=== PATIENT | male | born 1935 | race Caucasian/White ===

== ENCOUNTER → 2017-06-17 | Outpatient (CLI) | payer MEDICARE ==
[~2017-06-17] MED LIST: ASP81TEC PO; CARV3.122 PO; CLOP75TA PO; CLPD75T PO; ENAL2.5T PO; FENO145T2 PO; FENO160T PO; FEXO180T PO; FISH OIL 1,2001 EAC1 PO; FISH1CAP15 PO; HYDR-34 PO; ISM30TCR PO; ISOS30TA3 PO; LEVO125T6 PO; LEVO137T6 PO; LISI-556 PO; MULT-974 PO; NIAC1CAP PO; NIAC250T17 PO; OMEP20TA2 PO; PNT40TEC PO; PRV20T PO; RANO500T2 PO; ROSU10TA PO; TICA90TA PO
== END ==
LOC: CARD 08:51
PROVIDERS: ATTEND Internal Medicine Cardiovascular Disease
DX: I25.10 Atherosclerotic heart disease of native coronary artery without angina pectoris (principal); I10 Essential (primary) hypertension; E78.2 Mixed hyperlipidemia; E03.9 Hypothyroidism, unspecified; I65.23 Occlusion and stenosis of bilateral carotid arteries
CPT/HCPCS: 93306

== ENCOUNTER → 2017-06-23 | Outpatient (CLI) | payer MEDICARE ==
[~2017-06-23] MED LIST changes: +ASPI-983 PO; +ATOR10TA PO; +ATOR10TA66 PO; +CARV6.252 PO; +CATHETER FLUSH 10 ML SYR IV PRN; +CLOP75TA28 PO; +L.AC1CAP5 PO; +LEVO112T55 PO; +MULT-851 PO; +NIAC500C3 PO; +PANT40TA3 PO; +REGADENOSON 0.4 MG/5 ML SYR (LEXISCAN) IV ONE; +UBID200C16 PO
[2017-06-23 10:32] VITALS: BP 148/97
[2017-06-23 10:37] VITALS: BP 156/92
--- NOTE | 2017-06-23 20:56 | STRESS TEST ---
DATE OF SERVICE: 06/23/2017 REFERRING PHYSICIAN: Kenyatta Copeland M.D. Baseline heart rate is 75. Baseline blood pressure 133/91. Baseline EKG is sinus rhythm with no ischemic changes. In summary, the patient was injected with 10.26 mCi of technetium-99 Myoview and the resting images were obtained. The patient was injected with 28.8 mCi of technetium-99 Myoview at peak stress level. He was able to exercise for a total of 3 minutes on standard Jay protocol, achieving maximum heart rate of 153. With peak exercise level EKG was showing minimal nondiagnostic changes. Blood pressure was 175/91 during recovery, heart rate and blood pressure returned to baseline. EKG returned to baseline. The resting and stress images were reviewed and compared in the short axis, horizontal long axis and vertical long axis views. Review of the images showed extracardiac attenuation with reversible ischemia involving the whole inferior wall, inferolateral wall, inferoapical and anteroapical segment. SSS is 17. SVS is 8. TID value 1.09. On the gated images, the left ventricle appeared to be normal size with normal contractility. Calculated ejection fraction 58%. CONCLUSION: 1. Poor exercise tolerance a total of 3 minutes on standard Jay protocol. 2. Minimal nondiagnostic EKG changes with exercise returned to baseline during recovery. 3. Extracardiac attenuation with questionable ischemia involving the whole inferior wall inferoapical segment through apex, anteroapical segment and inferolateral wall. 4. Normal left ventricular size with normal contractility, calculated ejection fraction 58%. Job ID: [id number] DocumentID: [id number] Dictated Date: 06/23/2017 17:56:07 Supervisor Special Services Date: 06/23/2017 20:14:36 Dictated By: NICOLASA SANDHU MD
== END ==
LOC: CARD 07:59
PROVIDERS: ATTEND Internal Medicine Cardiovascular Disease
DX: I25.10 Atherosclerotic heart disease of native coronary artery without angina pectoris (principal); I10 Essential (primary) hypertension; I65.23 Occlusion and stenosis of bilateral carotid arteries; E78.2 Mixed hyperlipidemia; E03.9 Hypothyroidism, unspecified
CPT/HCPCS: 78452; 93017

== ENCOUNTER 2017-06-24 05:37 | Outpatient (CLI) | payer MEDICARE ==
[~2017-06-24] VITALS: Ht 177.8 cm; Wt 82.1 kg
[~2017-06-24 05:37] MED LIST changes: -ASPI-983 PO; -ATOR10TA PO; -ATOR10TA66 PO; -CARV6.252 PO; -CATHETER FLUSH 10 ML SYR IV PRN; -CLOP75TA28 PO; -L.AC1CAP5 PO; -LEVO112T55 PO; -MULT-851 PO; -NIAC500C3 PO; -PANT40TA3 PO; -REGADENOSON 0.4 MG/5 ML SYR (LEXISCAN) IV ONE; -UBID200C16 PO
[2017-06-25] MEDS ORDERED: NIAC500C3 PO ×2 (11:11)
[2017-06-25] MEDS ORDERED: PANT40TA3 PO ×2 (11:11)
[2017-06-25] MEDS ORDERED: CARV6.252 PO ×2 (11:11)
[2017-06-25] MEDS ORDERED: LEVO112T55 PO ×2 (11:11)
[2017-06-25] MEDS ORDERED: ASPI-983 PO ×2 (11:11)
[2017-06-25] MEDS ORDERED: UBID200C16 PO ×2 (11:12)
[2017-06-25] MEDS ORDERED: MULT-851 PO ×2 (11:12)
[2017-06-25] MEDS ORDERED: L.AC1CAP5 PO ×2 (11:12)
[2017-06-25] MEDS ORDERED: CLOP75TA28 PO ×2 (11:12)
[2017-06-25] MEDS ORDERED: ATOR10TA66 PO ×2 (11:12)
[2017-06-25] MEDS ORDERED: ATOR10TA PO ×2 (11:58)
== END 2017-06-24 13:00 ==
LOC: PREOP 05:37
PROVIDERS: ATTEND Surgery
DX: Z01.818 Encounter for other preprocedural examination (principal); K62.5 Hemorrhage of anus and rectum; Z86.010 Personal history of colon polyps

== ENCOUNTER 2017-06-25 10:16 | Day surgery (SDC) | payer MEDICARE ==
[2017-06-25] VITALS (9 sets, daily range): BP systolic 116–149; BP diastolic 73–87
[~2017-06-25] VITALS: Ht 177.8 cm; Wt 81.6 kg
[2017-06-25] MEDS ORDERED: HEParin (CATH LAB) 2,000 ML IV ONE (10:29)
[2017-06-25] MEDS ORDERED: LIDOCAINE 1% INJ 50 ML (XYLOCAINE) VIAL ONE (10:29)
[2017-06-25] MEDS ORDERED: NS IV 1000 ML 1,000 ML ONE (10:29)
[2017-06-25] MEDS ORDERED: NS IV 1000 ML 1,000 ML IV SCH ×3 (10:36→11:56)
[2017-06-25 11:00] LABS: RED BLOOD COUNT 5.45 10^6/uL (4.35-5.85); RED CELL DISTRIBUTION WIDTH 14.1 % (10.0-14.5); WHITE BLOOD COUNT 7.6 10^3/uL (4.3-11.0)
[2017-06-25 11:01] LABS: BILIRUBIN,URINE NEGATIVE (NEGATIVE); KETONES,URINE NEGATIVE (NEGATIVE); LEUKOCYTE ESTERASE ,URINE NEGATIVE (NEGATIVE); NITRITE,URINE NEGATIVE (NEGATIVE); PH,URINE 6 (5-9); PROTEIN,URINE NEGATIVE (NEGATIVE); UROBILINOGEN,URINE NORMAL (NORMAL)
[2017-06-25] MEDS ORDERED: methylPREDNISolone 125 MG (Solu-MEDROL) VIAL ONE (11:04)
--- NOTE | 2017-06-25 11:04 | Cardiac Procedure Note-CS/ASA ---
Pre-Procedure Note Pre-Op Procedure Note H&P Reviewed The H&P was reviewed, patient examined and no changes noted. Date H&P Reviewed: Jun 25, 2017 Time H&P Reviewed: 11:04 Conscious Sedation Pre-Proced Time Reviewed: 11:04 ASA Class: 3 Airway Mallampati Classification: ([place] appropriate class) I. II. III, IV Lungs Heart ASA score ASA 1: a normal healthy patient ASA 2: a patient with a mild systemic disease (mid diabetes, controlled hypertension, obesity x ASA 3: a patient with a severe systemic disease that limits activity (angina , COPD, prior Myocardial infarction) ASA 4: a patient with an incapacitating disease that is a constant threat to life (CHF, renal failure) ASA 5: a moribund patient not expected to survive 24 hrs. (ruptured aneurysm) ASA 6: a declared brain patient whose organs are being harvested. For emergent operations, add the letter E after the classification Grade 3 Sedation Plan: Analgesia, Amnesia, Plan communicated to team members, Discussed options with patient/fam, Discussed risks with patient/fam Note The patient is an appropriate candidate to undergo the planned procedure, sedation, and anesthesia. The patient immediately re-assessed prior to indication. NICOLASA SANDHU MD Jun 25, 2017 11:04
[2017-06-25] MEDS ORDERED: fentaNYL INJECTION 100 MCG/2 ML AMP ONE (11:10)
[2017-06-25] MEDS ORDERED: MIDAZOLAM 2 MG/2 ML (VERSED) VIAL ONE (11:10)
[2017-06-25] MEDS ORDERED: diphenhydrAMINE 50 MG/ML INJ (BENADRYL) ONE (11:10)
[2017-06-25] MEDS ORDERED: LEVO112T55 PO ×2 (11:11)
[2017-06-25] MEDS ORDERED: NIAC500C3 PO ×2 (11:11)
[2017-06-25] MEDS ORDERED: CARV6.252 PO ×2 (11:11)
[2017-06-25] MEDS ORDERED: PANT40TA3 PO ×2 (11:11)
[2017-06-25] MEDS ORDERED: ASPI-983 PO ×2 (11:11)
[2017-06-25 11:12] LABS: PROTHROMBIN TIME PATIENT 13.3 SEC (12.2-14.7)
[2017-06-25] MEDS ORDERED: UBID200C16 PO ×2 (11:12)
[2017-06-25] MEDS ORDERED: MULT-851 PO ×2 (11:12)
[2017-06-25] MEDS ORDERED: L.AC1CAP5 PO ×2 (11:12)
[2017-06-25] MEDS ORDERED: ATOR10TA66 PO ×2 (11:12)
[2017-06-25] MEDS ORDERED: CLOP75TA28 PO ×2 (11:12)
--- NOTE | 2017-06-25 11:14 | Diagnostic Imaging Report ---
INDICATION: Coronary catheterization, coronary artery disease. Frontal chest obtained at 1033 hrs am, and compared with 03/09/16. Heart is borderline in size with post sternotomy change. There is hyperinflation compatible with COPD with chronic appearing increased interstitial markings. There is no acute consolidation or pneumothorax or pleural fluid. Plate and screws are visualized in the right clavicle. IMPRESSION: COPD is a chronic appearing increased interstitial markings. Mild cardiomegaly and post sternotomy change. No acute change compared with 03/09/16. Dictated by: Dictated on workstation # [id number]
[2017-06-25 11:20] LABS: ALANINE AMINOTRANSFERASE 41 U/L (0-55); ALBUMIN 4.1 GM/DL (3.2-4.5); ANION GAP 7 MMOL/L (5-14); ASPARTATE AMINO TRANSFERASE 35 U/L (5-34); BILIRUBIN,TOTAL 1.1 MG/DL (0.1-1.0); BLOOD UREA NITROGEN 18 MG/DL (7-18); BUN/CREATININE RATIO 16; CALCIUM 9.8 MG/DL (8.5-10.1); CARBON DIOXIDE 30 MMOL/L (21-32); CHLORIDE 102 MMOL/L (98-107); CHOLESTEROL 198 MG/DL (< 200); CREATININE SERUM 1.13 MG/DL (0.60-1.30); DIRECT LDL 114 MG/DL (1-129); GFR ESTIMATED > 60; GLUCOSE 115 MG/DL (70-105); POTASSIUM 3.9 MMOL/L (3.6-5.0); SODIUM 139 MMOL/L (135-145); TOTAL PROTEIN 7.9 GM/DL (6.4-8.2); TRIGLYCERIDES 295 MG/DL (<150); VLDL CHOLESTEROL 59 MG/DL (5-40)
[2017-06-25] MEDS ORDERED: NITROGLYCERIN DRIP 25 MG/D5W 250 ML IV ONE (11:48)
[2017-06-25] MEDS ORDERED: ATOR10TA PO ×2 (11:58)
[2017-06-25] MEDS ORDERED: PATIENT MAY USE OWN MEDS, ALL PO SCH (12:00)
--- NOTE | 2017-06-25 12:01 | Discharge Inst-Post CATH ---
Discharge Inst-CATH Post Cardiac Cath D/C Inst Follow Up/Plan PROCEDURE NOTE: After explaining the procedure to the patient, all pros and cons were explained, all questions were answered. The patient signed the consent and then she was placed on the cardiac catheterization laboratory. The patient was placed on the cardiac catheterization laboratory. Groin was prepped SL fashion local anesthesia was used. Sheath placed in the right femoral artery. Rivas right and left catheter were used to access the coronary system. Vein Graft evaluated. MEYER evaluated. Pigtail was used to access the left ventricular cavity. Left ventriculogram was not done, pressure was measured At the end of the procedure the sheath was removed. Closure device was used FINDINGS: Hemodynamics LV 115/15 end-diastolic pressure 15 Aorta 125/61 mean of 85 ANATOMY: Left Main has moderate disease Left Anterior Descending is occluded, MEYER to LAD is patent, vein graft to diagonal artery is patent, stent is patent beyond the stented artery is a hairline artery Left Circumflex is disease with patent MEYER to LAD Right Coronory Artery has multiple stents and has mild in-stent restenosis distally small vessel disease MEYER to LAD is patent with good flow distally Vein Graft evaluation was done Vein graft to the right coronary artery is known to be occluded Vein graft to the diagonal artery is patent, the diagonal artery is fairly small artery has a patent stent to become hairline artery post stent Vein graft to the obtuse marginal branch is patent with good flow distally LV Gram was not done, pressure was measured CONCLUSION: 1. Severe small vessel disease at the distal diagonal artery and right coronary artery and LAD 2. Patent MEYER to LAD 3. Patent vein graft to diagonal artery, the diagonal artery is known to have 2 stents, beyond the stent it is a hairline artery with small vessel disease 4. Patent vein graft to obtuse marginal branch with good flow distally 5. Known occluded vein graft to the right coronary artery, the [place] right cornea artery has multiple stents from the proximal to distal portion that are patent, beyond the bifurcation there is small vessel disease in the PDA DISCUSSION AND RECOMMENDATION: Continue to maximize medical therapy, I will increase Lipitor to 20 mg daily. Continue on aspirin and Plavix CARDIAC CATH DISCHARGE INSTRUCTIONS *Hold Metformin for 48 hours post heart cath. ACTIVITY * Go Home directly and rest. * Limit activity of the leg (or wrist if it was used) for 7 days including aerobics, swimming, jogging, bicycling, etc. * Restrict stair-climbing for 7 days if possible, if not, climb up with your non -cath leg, then bring together on the same step. * Avoid lifting, pushing, pulling or excessive movement of the affected extremity for 7 days. * Customary sexual activity may be resumed after 2 days-use caution not to use a position that strains or causes pain to the affected extremity. * No driving for 24 hours. * NO SMOKING. * Avoid straining for bowel movements for 7 days. * Gentle walking on level ground is allowed. * Returning to work will depend on the type of procedure and the results. Your doctor will discuss this with you. CALL YOUR DOCTOR FOR ANY OF THE FOLLOWING: *If bleeding from the puncture site occurs- Apply gentle pressure to site with clean cloth and call your doctor or EMS. * If a knot or lump forms under the skin, increases in size, or causes pain. * If bruising appears to be worsening or moving further down your leg instead of disappearing. * Temperature above 101 F. CARE OF YOUR GROIN INCISION; * Bruising or purple discoloration of the skin near the puncture site is common. * You may shower only, no bathtub bathing for 5 days. Be careful to avoid slipping as your leg may feel stiff. * If a closure device was used on your femoral artery, please see the attached guide regarding care of the device and your leg. * REMOVE the dressing from your groin the next day after your procedure in the shower. CARE OF YOUR WRIST INCISION; * Bruising or purple discoloration of the skin near the puncture site is common. * You may shower. * DO NOT submerge wrist. * Remove dressing in 24 hours. NICOLASA SANDHU MD Jun 25, 2017 12:01
--- NOTE | 2017-06-25 12:04 | Cardiac Cath Report ---
Cardiac Cath Report Physician (s)/Validation Engineer (s) Physician NICOLASA SANDHU MD Pre-Procedure Diagnosis Pre-Procedure Diagnosis: Coronary artery disease Post-Procedure Note Procedure Start Date: Jun 25, 2017 Name of Procedure: Left heart catheterization, vein graft angiogram, MEYER angiogram, left ventricular pressure measurement. 12009 Findings/Procedure Note Hemodynamics LV 115/15 end-diastolic pressure 15 Aorta 125/61 mean of 85 ANATOMY: Left Main has moderate disease Left Anterior Descending is occluded, MEYER to LAD is patent, vein graft to diagonal artery is patent, stent is patent beyond the stented artery is a hairline artery Left Circumflex is disease with patent MEYER to LAD Right Coronory Artery has multiple stents and has mild in-stent restenosis distally small vessel disease MEYER to LAD is patent with good flow distally Vein Graft evaluation was done Vein graft to the right coronary artery is known to be occluded Vein graft to the diagonal artery is patent, the diagonal artery is fairly small artery has a patent stent to become hairline artery post stent Vein graft to the obtuse marginal branch is patent with good flow distally LV Gram was not done, pressure was measured CONCLUSION: 1. Severe small vessel disease at the distal diagonal artery and right coronary artery and LAD 2. Patent MEYER to LAD 3. Patent vein graft to diagonal artery, the diagonal artery is known to have 2 stents, beyond the stent it is a hairline artery with small vessel disease 4. Patent vein graft to obtuse marginal branch with good flow distally 5. Known occluded vein graft to the right coronary artery, the [place] right cornea artery has multiple stents from the proximal to distal portion that are patent, beyond the bifurcation there is small vessel disease in the PDA DISCUSSION AND RECOMMENDATION: Continue to maximize medical therapy, I will increase Lipitor to 20 mg daily. Continue on aspirin and Plavix Anesthesia Type: Conscious Sedation Estimated blood loss (mL): 20 ml Contrast Amount: 84 ml Total Radiation Dose: 408 mGy Post-Procedure Diagnosis Post-operative diagnosis: Shortness of breath Coronary artery disease Hypertension Hyperlipidemia NICOLASA SANDHU MD Jun 25, 2017 12:04
== END 2017-06-25 16:54 | disposition home or self-care (01) ==
LOC: CATH 10:16 → ICU 12:10 → CATH 16:54
PROVIDERS: ATTEND Internal Medicine Cardiovascular Disease
DX: I25.10 Atherosclerotic heart disease of native coronary artery without angina pectoris (principal); I73.9 Peripheral vascular disease, unspecified; I11.0 Hypertensive heart disease with heart failure; I50.30 Unspecified diastolic (congestive) heart failure; I35.0 Nonrheumatic aortic (valve) stenosis; E78.5 Hyperlipidemia, unspecified; E03.9 Hypothyroidism, unspecified; I25.2 Old myocardial infarction; Z95.1 Presence of aortocoronary bypass graft; Z95.5 Presence of coronary angioplasty implant and graft; Z79.02 Long term (current) use of antithrombotics/antiplatelets; Z79.82 Long term (current) use of aspirin; Z79.899 Other long term (current) drug therapy
CPT/HCPCS: 36415; 71010; 80053; 80061; 81000; 85027; 85610; 85730; 87081; 93459

== ENCOUNTER 2017-06-30 11:13 | Day surgery (SDC) | payer MEDICARE ==
[~2017-06-30] VITALS: Ht 177.8 cm; Wt 81.6 kg
[~2017-06-30 11:13] MED LIST changes: +ASPI-983 PO; +ATOR10TA PO; +ATOR10TA66 PO; +CARV6.252 PO; +CLOP75TA28 PO; +L.AC1CAP5 PO; +LEVO112T55 PO; +MULT-851 PO; +NIAC500C3 PO; +PANT40TA3 PO; +UBID200C16 PO
--- OUTSIDE RECORDS SUMMARY | 2017-06-30 13:01 | XMS REPORT | Continuity of Care Document ---
Author Author [facility] Organization [facility] Address Unknown Phone Unavailable Allergies Active Description Code Type Severity Reaction Onset Reported/Identified Relationship to Patient Clinical Status Yes ranitidine HCl [id number] Drug Allergy Mild N/A 06/25/2011 Yes bee stings bee stings Unknown N/A 03/09/2016 Yes Shellfish [id number] Drug Allergy Unknown N/A 03/09/2016 Medications There is no data. Problems Date Dx Coded Attending Type Code Diagnosis Diagnosed By 01/10/2015 JAMES BEVERLY Ot 401.9 01/10/2015 JAMES BEVERLY Ot 414.9 01/10/2015 JAMES BEVERLY Ot 428.0 01/10/2015 JMAES BEVERLY Ot 433.30 01/11/2015 JAMES BEVERLY Ot 401.9 01/11/2015 JAMES BEVERLY Ot 414.9 01/11/2015 JAMES BEVERLY Ot 428.0 01/11/2015 JAMES BEVERLY Ot 433.30 05/18/2015 NICOLASA SANDHU MD Ot 401.9 05/18/2015 NICOLASA SANDHU MD Ot 414.00 05/18/2015 NICOLASA SANDHU MD Ot 428.0 05/18/2015 NICOLASA SANDHU MD Ot 433.10 03/11/2016 NICOLASA SANDHU MD Ot E03.9 HYPOTHYROIDISM, UNSPECIFIED 03/11/2016 NICOLASA SANDHU MD Ot E78.5 HYPERLIPIDEMIA, UNSPECIFIED 03/11/2016 NICOLASA SANDHU MD Ot I10 ESSENTIAL (PRIMARY) HYPERTENSION 03/11/2016 NICOLASA SANDHU MD Ot I21.4 NON-ST ELEVATION (NSTEMI) MYOCARDIAL INF 03/11/2016 NICOLASA SANDHU MD Ot I25.10 ATHSCL HEART DISEASE OF [place] CORONARY 03/11/2016 NICOLASA SANDHU MD Ot I25.810 ATHEROSCLEROSIS OF CABG W/O ANGINA PECTO 03/11/2016 NICOLASA SANDHU MD Ot K21.9 GASTRO-ESOPHAGEAL REFLUX DISEASE WITHOUT 03/11/2016 NICOLASA SANDHU MD Ot Z87.891 PERSONAL HISTORY OF NICOTINE DEPENDENCE 03/11/2016 NICOLASA SANDHU MD Ot Z95.1 PRESENCE OF AORTOCORONARY BYPASS GRAFT 03/11/2016 NICOLASA SANDHU MD Ot Z95.5 PRESENCE OF CORONARY ANGIOPLASTY IMPLANT 06/16/2017 NICOLASA SANDHU MD Ot 414.00 CORON ATHEROSCLER NOS TYPE VESSEL, NATIV 06/16/2017 NICOLASA SANDHU MD Ot 428.0 CONGESTIVE HEART FAILURE NOS 06/16/2017 ELISSA CULLEN [employer] Ot 241.0 NONTOX UNINODULAR GOITER 06/16/2017 ELISSA CULLEN [employer] Ot 784.2 SWELLING IN HEAD NECK 06/16/2017 NICOLASA SANDHU MD Ot 397.0 TRICUSPID VALVE DISEASE 06/16/2017 NICOLASA SANDHU MD Ot 401.9 HYPERTENSION NOS 06/16/2017 NICOLASA SANDHU MD Ot 414.00 CORON ATHEROSCLER NOS TYPE VESSEL, NATIV 06/16/2017 NICOLASA SANDHU MD Ot 424.0 MITRAL VALVE DISORDER 06/16/2017 NICOLASA SANDHU MD Ot 428.0 CONGESTIVE HEART FAILURE NOS 06/16/2017 NICOLASA SANDHU MD Ot 401.9 HYPERTENSION NOS 06/16/2017 NICOLASA SANDHU MD Ot 414.00 CORON ATHEROSCLER NOS TYPE VESSEL, NATIV 06/16/2017 NICOLASA SANDHU MD Ot 428.0 CONGESTIVE HEART FAILURE NOS 06/16/2017 NICOLASA SANDHU MD Ot 433.10 CAROTID ARTERY OCCLUSION W O CEREBRAL IN 06/16/2017 JAMES BEVERLY Ot 401.9 HYPERTENSION NOS 06/16/2017 JAMES BEVERLY Ot 414.9 CHR ISCHEMIC HRT DIS NOS 06/16/2017 JAMES BEVERLY Ot 428.0 CONGESTIVE HEART FAILURE NOS 06/16/2017 JAMES BEVERLY Ot 433.30 MULT BILTRAL ARTERY OCCLUSION WO CEREBRA 06/25/2017 NICOLASA SANDHU MD Ot E03.9 HYPOTHYROIDISM, UNSPECIFIED 06/25/2017 NICOLASA SANDHU MD, Ot E78.2 MIXED HYPERLIPIDEMIA 06/25/2017 NICOLASA SANDHU MD Ot I10 ESSENTIAL (PRIMARY) HYPERTENSION 06/25/2017 NICOLASA SANDHU MD, Ot I25.10 ATHSCL HEART DISEASE OF [place] CORONARY 06/25/2017 NICOLASA SANDHU MD Ot 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 06/27/2017 JAMIA DE LEÓN MD Ot K62.5 HEMORRHAGE OF ANUS AND RECTUM 06/27/2017 JAMIA DE LEÓN MD Ot Z01.818 ENCOUNTER FOR OTHER PREPROCEDURAL EXAMIN 06/27/2017 JAMIA DE LEÓN MD Ot Z86.010 PERSONAL HISTORY OF COLONIC POLYPS 06/27/2017 NICOLASA SANDHU MD, Ot E03.9 HYPOTHYROIDISM, UNSPECIFIED 06/27/2017 NICOLASA SANDHU MD, Ot E78.2 MIXED HYPERLIPIDEMIA 06/27/2017 NICOLASA SANDHU MD Ot I10 ESSENTIAL (PRIMARY) HYPERTENSION 06/27/2017 NICOLASA SANDHU MD, Ot I25.10 ATHSCL HEART DISEASE OF [place] CORONARY 06/27/2017 NICOLASA SANDHU MD, Ot 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 Procedures Code Description Performed By Performed On [id number] DILATION OF 1 COR ART WITH DRUG-ELUT INT 03/09/2016 [id number] DILATION OF CORONARY ARTERY, ONE SITE, P 03/09/2016 [id number] FLUOROSCOPY OF MULT COR ART USING L OSM 03/09/2016 [id number] FLUOROSCOPY OF MULT COR A GRAFT USING L 03/09/2016 [id number] FLUOROSCOPY OF L INT MAMM GRAFT USING L 03/09/2016 Results Test Result Range Complete blood count (CBC) with automated white blood cell (WBC) differential - 03/09/16 16:35 Blood leukocytes automated count (number/volume) 8.6 10*3/uL 4.3-11.0 Blood erythrocytes automated count (number/volume) 5.70 10*6/uL 4.35-5.85 Venous blood hemoglobin measurement (mass/volume) 17.1 g/dL 13.3-17.7 Blood hematocrit (volume fraction) 49 % 40-54 Automated erythrocyte mean corpuscular volume 86 [foz_us] 80-99 Automated erythrocyte mean corpuscular hemoglobin (mass per erythrocyte) 30 pg 25-34 Automated erythrocyte mean corpuscular hemoglobin concentration measurement ( mass/volume) 35 g/dL 32-36 Automated erythrocyte distribution width ratio 13.7 % 10.0-14.5 Automated blood platelet count (count/volume) 178 10*3/uL 130-400 Automated blood platelet mean volume measurement 11.4 [foz_us] 7.4-10.4 Automated blood neutrophils/100 leukocytes 61 % 42-75 Automated blood lymphocytes/100 leukocytes 20 % 12-44 Blood monocytes/100 leukocytes 18 % 0-12 Automated blood eosinophils/100 leukocytes 1 % 0-10 Automated blood basophils/100 leukocytes 0 % 0-10 Blood neutrophils automated count (number/volume) 5.2 10*3 1.8-7.8 Blood lymphocytes automated count (number/volume) 1.7 10*3 1.0-4.0 Blood monocytes automated count (number/volume) 1.5 10*3 0.0-1.0 Automated eosinophil count 0.1 10*3/uL 0.0-0.3 Automated blood basophil count (count/volume) 0.0 10*3/uL 0.0-0.1 PT panel in platelet poor plasma by coagulation assay - 03/09/16 16:35 Prothrombin time (PT) in platelet poor plasma by coagulation assay 13.8 s 12.2-14.7 INR in platelet poor plasma or blood by coagulation assay 1.1 0.8-1.4 Activated partial thromboplastin time (aPTT) in platelet poor plasma bycoagulation assay - 03/09/16 16:35 Activated partial thromboplastin time (aPTT) in platelet poor plasma bycoagulation assay 29 s 24-35 Comprehensive metabolic panel - 03/09/16 16:35 Serum or plasma sodium measurement (moles/volume) 137 mmol/L 135-145 Serum or plasma potassium measurement (moles/volume) 3.8 mmol/L 3.6-5.0 Serum or plasma chloride measurement (moles/volume) 101 mmol/L 98-107 Carbon dioxide 24 mmol/L 21-32 Serum or plasma anion gap determination (moles/volume) 12 mmol/L 5-14 Serum or plasma urea nitrogen measurement (mass/volume) 19 mg/dL 7-18 Serum or plasma creatinine measurement (mass/volume) 1.16 mg/dL 0.60-1.30 Serum or plasma urea nitrogen/creatinine mass ratio 16 NRG Serum or plasma creatinine measurement with calculation of estimated glomerular filtration rate > NRG Serum or plasma glucose measurement (mass/volume) 117 mg/dL 70-105 Serum or plasma calcium measurement (mass/volume) 10.0 mg/dL 8.5-10.1 Serum or plasma total bilirubin measurement (mass/volume) 1.6 mg/dL 0.1-1.0 Serum or plasma alkaline phosphatase measurement (enzymatic activity/volume) 86 U/L 40-136 Serum or plasma aspartate aminotransferase measurement (enzymatic activity/ volume) 77 U/L 5-34 Serum or plasma alanine aminotransferase measurement (enzymatic activity/volume ) 38 U/L 0-55 Serum or plasma protein measurement (mass/volume) 7.5 g/dL 6.4-8.2 Serum or plasma albumin measurement (mass/volume) 4.2 g/dL 3.2-4.5 Magnesium - 03/09/16 16:35 Magnesium 1.9 mg/dL 1.8-2.4 Serum or plasma troponin i.cardiac measurement (mass/volume) - 03/09/16 16:35 Serum or plasma troponin i.cardiac measurement (mass/volume) 4.78 ng /mL <0.30 Myoglobin, serum - 03/09/16 16:35 Myoglobin, serum 140.0 ng/mL 10.0-92.0 Automated blood complete blood count (hemogram) panel - 03/10/16 04:32 Blood leukocytes automated count (number/volume) 6.3 10*3/uL 4.3-11.0 Blood erythrocytes automated count (number/volume) 5.56 10*6/uL 4.35-5.85 Venous blood hemoglobin measurement (mass/volume) 16.5 g/dL 13.3-17.7 Blood hematocrit (volume fraction) 48 % 40-54 Automated erythrocyte mean corpuscular volume 86 [foz_us] 80-99 Automated erythrocyte mean corpuscular hemoglobin (mass per erythrocyte) 30 pg 25-34 Automated erythrocyte mean corpuscular hemoglobin concentration measurement ( mass/volume) 35 g/dL 32-36 Automated erythrocyte distribution width ratio 13.8 % 10.0-14.5 Automated blood platelet count (count/volume) 168 10*3/uL 130-400 Automated blood platelet mean volume measurement 12.0 [foz_us] 7.4-10.4 Whole blood basic metabolic panel - 03/10/16 04:37 Serum or plasma sodium measurement (moles/volume) 137 mmol/L 135-145 Serum or plasma potassium measurement (moles/volume) 4.0 mmol/L 3.6-5.0 Serum or plasma chloride measurement (moles/volume) 106 mmol/L 98-107 Carbon dioxide 19 mmol/L 21-32 Serum or plasma anion gap determination (moles/volume) 12 mmol/L 5-14 Serum or plasma urea nitrogen measurement (mass/volume) 14 mg/dL 7-18 Serum or plasma creatinine measurement (mass/volume) 0.94 mg/dL 0.60-1.30 Serum or plasma urea nitrogen/creatinine mass ratio 15 NRG Serum or plasma creatinine measurement with calculation of estimated glomerular filtration rate > NRG Serum or plasma glucose measurement (mass/volume) 170 mg/dL 70-105 Serum or plasma calcium measurement (mass/volume) 8.8 mg/dL 8.5-10.1 Serum or plasma troponin i.cardiac measurement (mass/volume) - 03/10/16 04:37 Serum or plasma troponin i.cardiac measurement (mass/volume) 6.05 ng /mL <0.30 Lipid 1996 panel - 03/10/16 04:37 Serum or plasma triglyceride measurement (mass/volume) 119 mg/dL <150 Serum or plasma cholesterol measurement (mass/volume) 154 mg/dL < 200 Serum or plasma cholesterol in HDL measurement (mass/volume) 36 mg/ dL 40-60 Cholesterol in LDL [mass/volume] in serum or plasma by direct assay 98 mg/dL 1-129 Serum or plasma cholesterol in VLDL measurement (mass/volume) 24 mg/ dL 5-40 Methicillin resistant Staphylococcus aureus (MRSA) screening culture - 07:15 Methicillin resistant Staphylococcus aureus (MRSA) screening culture NEG NRG Automated blood complete blood count (hemogram) panel - 06/25/17 10:53 Blood leukocytes automated count (number/volume) 7.6 10*3/uL 4.3-11.0 Blood erythrocytes automated count (number/volume) 5.45 10*6/uL 4.35-5.85 Venous blood hemoglobin measurement (mass/volume) 16.2 g/dL 13.3-17.7 Blood hematocrit (volume fraction) 48 % 40-54 Automated erythrocyte mean corpuscular volume 89 [foz_us] 80-99 Automated erythrocyte mean corpuscular hemoglobin (mass per erythrocyte) 30 pg 25-34 Automated erythrocyte mean corpuscular hemoglobin concentration measurement ( mass/volume) 34 g/dL 32-36 Automated erythrocyte distribution width ratio 14.1 % 10.0-14.5 Automated blood platelet count (count/volume) 207 10*3/uL 130-400 Automated blood platelet mean volume measurement 11.0 [foz_us] 7.4-10.4 Complete urinalysis with reflex to culture - 06/25/17 10:53 Urine color determination YELLOW NRG Urine clarity determination CLEAR NRG Urine pH measurement by test strip 6 5-9 Specific gravity of urine by test strip 1.015 1.016- 1.022 Urine protein assay by test strip, semi-quantitative NEGATIVE NEGATIVE Urine glucose detection by automated test strip NEGATIVE NEGATIVE Erythrocytes detection in urine sediment by light microscopy NEGATIVE NEGATIVE Urine ketones detection by automated test strip NEGATIVE NEGATIVE Urine nitrite detection by test strip NEGATIVE NEGATIVE Urine total bilirubin detection by test strip NEGATIVE NEGATIVE Urine urobilinogen measurement by automated test strip (mass/volume) NORMAL NORMAL Urine leukocyte esterase detection by dipstick NEGATIVE NEGATIVE Automated urine sediment erythrocyte count by microscopy (number/high power field) NONE NRG Automated urine sediment leukocyte count by microscopy (number/high power field ) NONE NRG Bacteria detection in urine sediment by light microscopy NEGATIVE NRG Crystals detection in urine sediment by light microscopy NONE NRG Casts detection in urine sediment by light microscopy NONE NRG Mucus detection in urine sediment by light microscopy SMALL NRG Complete urinalysis with reflex to culture NO NRG PT panel in platelet poor plasma by coagulation assay - 06/25/17 10:53 Prothrombin time (PT) in platelet poor plasma by coagulation assay 13.3 s 12.2-14.7 INR in platelet poor plasma or blood by coagulation assay 1.0 0.8-1.4 Activated partial thromboplastin time (aPTT) in platelet poor plasma bycoagulation assay - 06/25/17 10:53 Activated partial thromboplastin time (aPTT) in platelet poor plasma bycoagulation assay 38 s 24-35 Comprehensive metabolic panel - 06/25/17 10:53 Serum or plasma sodium measurement (moles/volume) 139 mmol/L 135-145 Serum or plasma potassium measurement (moles/volume) 3.9 mmol/L 3.6-5.0 Serum or plasma chloride measurement (moles/volume) 102 mmol/L 98-107 Carbon dioxide 30 mmol/L 21-32 Serum or plasma anion gap determination (moles/volume) 7 mmol/L 5-14 Serum or plasma urea nitrogen measurement (mass/volume) 18 mg/dL 7-18 Serum or plasma creatinine measurement (mass/volume) 1.13 mg/dL 0.60-1.30 Serum or plasma urea nitrogen/creatinine mass ratio 16 NRG Serum or plasma creatinine measurement with calculation of estimated glomerular filtration rate > NRG Serum or plasma glucose measurement (mass/volume) 115 mg/dL 70-105 Serum or plasma calcium measurement (mass/volume) 9.8 mg/dL 8.5-10.1 Serum or plasma total bilirubin measurement (mass/volume) 1.1 mg/dL 0.1-1.0 Serum or plasma alkaline phosphatase measurement (enzymatic activity/volume) 73 U/L 40-136 Serum or plasma aspartate aminotransferase measurement (enzymatic activity/ volume) 35 U/L 5-34 Serum or plasma alanine aminotransferase measurement (enzymatic activity/volume ) 41 U/L 0-55 Serum or plasma protein measurement (mass/volume) 7.9 g/dL 6.4-8.2 Serum or plasma albumin measurement (mass/volume) 4.1 g/dL 3.2-4.5 Lipid 1996 panel - 06/25/17 10:53 Serum or plasma triglyceride measurement (mass/volume) 295 mg/dL <150 Serum or plasma cholesterol measurement (mass/volume) 198 mg/dL < 200 Serum or plasma cholesterol in HDL measurement (mass/volume) 38 mg/ dL 40-60 Cholesterol in LDL [mass/volume] in serum or plasma by direct assay 114 mg/dL 1-129 Serum or plasma cholesterol in VLDL measurement (mass/volume) 59 mg/ dL 5-40 Methicillin resistant Staphylococcus aureus (MRSA) screening culture - 10:53 Methicillin resistant Staphylococcus aureus (MRSA) screening culture NEG NRG Encounters ACCT No. Visit Date/Time Discharge Status Pt. Type Provider Facility Loc./Unit Complaint [id number] 06/25/2017 10:16:00 06/25/2017 16:54:00 DIS Outpatient EDSONNIOCLASA URBANO MD [facility] CATH ABN STRESS,CAD,HLP [id number] 06/24/2017 05:37:00 06/24/2017 13:00:00 DIS Outpatient JAMIA DE LEÓN MD [facility] PREOP COLONOSCOPY [id number] 06/23/2017 07:59:00 06/23/2017 23:59:59 CLS Outpatient NICOLASA SANDHU MD [facility] CARD CAD I25.10 [id number] 06/17/2017 08:51:00 06/17/2017 23:59:59 CLS Outpatient NICOLASA SANDHU MD [facility] CARD CAD [id number] 03/09/2016 19:26:00 03/11/2016 11:05:00 DIS Inpatient NICOLASA SANDHU MD [facility] ICU CP/HEART CATH [id number] 04/10/2015 07:59:00 04/10/2015 23:59:59 CLS Outpatient NICOLASA SANDHU MD [facility] CARD CAD,HTN, CARTOID STENSIS [id number] 12/30/2014 08:22:00 12/30/2014 23:59:59 CLS Outpatient JAMES BEVERLY [facility] CARD CAD CHF CAROTID STENOSIS [id number] 01/12/2014 07:36:00 01/12/2014 23:59:59 CLS Outpatient NICOLASA SANDHU MD [facility] CARD CAD,HTN,CHF,HLP [id number] 10/19/2013 11:21:00 10/19/2013 23:59:59 CLS Outpatient ELISSA CULLEN [facility] RAD SUBMANDIBULAR ENLARGEMENT [id number] 10/13/2013 11:06:00 10/13/2013 23:59:59 CLS Outpatient ELISSA CULLEN [facility] RAD HYPOTHRYOIDISM, ENLARGED THYROID [id number] 04/28/2013 07:10:00 04/28/2013 23:59:59 CLS Outpatient NICOLASA SANDHU MD [facility] RAD CHF,CAD [id number] 04/20/2013 10:48:00 04/20/2013 23:59:59 CLS Outpatient [id number] 03/04/2013 11:23:00 03/04/2013 23:59:59 CLS Outpatient [id number] 06/30/2017 12:00:00 PEN Preadcarolina DE LEÓN MD, JAMIA [facility] ENDO RECTAL BLEEDING/HX POLYPS
[2017-06-30 13:07] VITALS: BP 125/95
[2017-06-30] MEDS ORDERED: NS IV 500 ML 500 ML IV PRN (13:12)
[2017-06-30] MEDS ORDERED: NS IV 500 ML 500 ML ONE (13:15)
[2017-06-30] MEDS ORDERED: MIDAZOLAM 2 MG/2 ML (VERSED) VIAL ONE ×3 (13:54→13:55)
[2017-06-30] MEDS ORDERED: fentaNYL INJECTION 100 MCG/2 ML AMP ONE (13:55)
--- NOTE | 2017-06-30 14:13 | History & Physicial ---
History of Present Illness History of Present Illness Reason for visit/HPI To undergo colonoscopy regarding rectal bleeding and on the basis of a personal history of polyps Date of Admission 06/30/17 Date Seen by Provider: Jun 30, 2017 Time Seen by Provider: 14:11 I consulted on this patient on 06/30/17 14:10 Attending Physician Leeroy De León MD Admitting Physician Kenyatta Copeland MD Consult Allergies and Home Medications Allergies Coded Allergies: Shellfish (Verified Allergy, Unknown, 03/09/16) ranitidine HCl (Verified Adverse Reaction, Mild, 06/25/11) Uncoded Allergies: bee stings (Allergy, Unknown, 03/09/16) Home Medications Aspirin 81 Mg Tablet.dr, 81 MG PO DAILY, (Reported) Atorvastatin Calcium 10 Mg Tablet, 20 MG PO DAILY, #30 Ref 4 Prescribed by: NICOLASA SANDHU on 06/25/17 1158 Carvedilol 6.25 Mg Tablet, 6.25 MG PO BID, (Reported) Clopidogrel Bisulfate 75 Mg Tablet, 75 MG PO DAILY, (Reported) Fish Oil/Dha/Epa 1 Each Capsule, 1,200 MG PO BID, (Reported) L.acid/L.casei/B.bif/B.mika/Fos 1 Each Capsule, 1 CAP PO DAILY, (Reported) Levothyroxine Sodium 112 Mcg Tablet, 112 MCG PO DAILY, (Reported) Lisinopril 5 Mg Tablet, 5 MG PO DAILY, (Reported) Multivits-Minerals/FA/Lycopene 1 Each Tablet, 1 TAB PO DAILY, (Reported) Niacin 500 Mg Capsule.er, 500 MG PO BID, (Reported) Pantoprazole Sodium 40 Mg Tablet.dr, 40 MG PO DAILY, (Reported) Ubidecarenone 200 Mg Capsule, 200 MG PO DAILY, (Reported) Past Wkalqcn-Sngcwh-Qhjcvm Hx Patient Social History Marrital Status: Employed/Student: retired Alcohol Use: Denies Use Recreational Drug Use: No Smoking Status: Former Smoker Former Smoker, Quit: Jun 25, 1984 Type Used: Cigarettes Recent Foreign Travel: No Contact w/other who traveled: No Recent Hopitalizations: No Recent Infectious Disease Expo: No Immunizations Up To Date Tetanus Booster (TDap): Unknown Date of Pneumonia Vaccine: Apr 29, 2015 Date of Influenza Vaccine: Apr 13, 2017 Seasonal Allergies Seasonal Allergies: No Surgeries Yes CABG, Coronary Stent, Orthopedic, Vascular Surgery Respiratory Currently Using CPAP: No Currently Using BIPAP: No Cardiovascular Yes Coronary Artery Disease, High Cholesterol, Hypertension Reproductive System Hx Reproductive Disorders: No Sexually Transmitted Disease: No Gastrointestinal Yes Gastroesophageal Reflux, Polyps Musculoskeletal No Endocrine History of Endocrine Disorders: No HEENT History of HEENT Disorders: No Loss of Vision: Denies Hearing Impairment: Denies Family Medical History Significant Family History: Heart Disease Constitutional: no symptoms reported EENTM: no symptoms reported Respiratory: no symptoms reported Cardiovascular: no symptoms reported Gastrointestinal: see HPI Genitourinary: no symptoms reported Musculoskeletal: no symptoms reported Skin: no symptoms reported Psychiatric/Neurological: No Symptoms Reported Physical Exam Vital Signs Vital Sign - Last 12Hours 06/30/ 13:07 Temp 97.3 Pulse 90 Resp 18 B/P (MAP) 125/95 (105) Pulse Ox 93 O2 Delivery Room Air Capillary Refill : General Appearance: No Apparent Distress HEENT: Normal ENT Inspection Neck: Normal Inspection Respiratory: Lungs Clear Cardiovascular: Regular Rate, Rhythm Gastrointestinal: Non Tender, Soft Rectal: Deferred Back: Normal Inspection Extremity: Normal Inspection Neurologic/Psychiatric: Alert, Oriented x3 Skin: Warm/Dry Assessment/Plan Assessment and Plan gentleman with a previous history of polyps. Rectal bleeding Problems: LEEROY DE LEÓN MD Jun 30, 2017 2:13 pm
--- NOTE | 2017-06-30 14:13 | Conscious Sedation/ASA ---
Conscious Sedation Pre-Proced Time Reviewed: 14:13 ASA Class: 2 Airway Mallampati Classification: ([place] appropriate class) I. II. III, IV Lungs Heart ASA score ASA 1: a normal healthy patient ASA 2: a patient with a mild systemic disease (mid diabetes, controlled hypertension, obesity ASA 3: a patient with a severe systemic disease that limits activity (angina , COPD, prior Myocardial infarction) ASA 4: a patient with an incapacitating disease that is a constant threat to life (CHF, renal failure) ASA 5: a moribund patient not expected to survive 24 hrs. (ruptured aneurysm) ASA 6: a declared brain patient whose organs are being harvested. For emergent operations, add the letter E after the classification Grade 1 Sedation Plan: Discussed options with patient/fam Note The patient is an appropriate candidate to undergo the planned procedure, sedation, and anesthesia. The patient immediately re-assessed prior to indication. JAMIA DE LEÓN MD Jun 30, 2017 2:13 pm
[2017-06-30] MEDS: fentaNYL INJECTION 100 MCG/2 ML AMP IVP PRN ×2 (14:15→14:26)
[2017-06-30] MEDS: MIDAZOLAM 2 MG/2 ML (VERSED) VIAL IVP PRN ×2 (14:17→14:25)
--- NOTE | 2017-06-30 14:38 | Endo Procedure Record ---
Endo Procedure Report Date of Procedure Jun 30, 2017 Surgeon (s) JAMIA DE LEÓN MD Post Procedure/Op Diagnosis 1.internal hemorrhoids, possible source of his bleeding 2. Enlarged prostate 3. Sigmoid diverticulosis 4. 3 mm polyp at the proximal transverse colon Procedure Performed colonoscopy to cecum Snare polypectomy Description of Procedure Anesthesia Type: Conscious Sedation Specimen(s) collected/removed polyp from the transverse colon Description of the Procedure Indication for the procedure: This gentleman came in for colonoscopy to investigate rectal bleeding and on the basis of a personal history of polyps. Informed consent was obtained after reviewing the procedure in detail. Description of the procedure: He was placed in left lateral decubitus position and his vital signs were monitored. Conscious sedation was achieved using Versed and fentanyl. Examination of the perianal area revealed external hemorrhoids. Digital examination revealed an enlarged prostate with no obvious nodules. The colonoscope was then introduced into the rectum and advanced all the way up to the cecum. The quality of the bowel preparation was reasonable. The scope was then withdrawn slowly and the mucosa examined in a systematic fashion. Findings: 1. Internal and external hemorrhoids, the possible source of his bleeding 2.sigmoid diverticulosis 3. 3 mm polyp at the proximal transverse colon, that was snared and retrieved. He tolerated the procedure well and was taken back to the nursing area in a stable condition. Impression: Rectal bleeding. Internal hemorrhoids. 3 mm transverse colon polyp excised. Recommend repeating in 3 years. Copies To: LUAN SIMS MD,JAMIA Doshi MD Jun 30, 2017 2:38 pm
--- NOTE | 2017-06-30 14:39 | Discharge Inst-Simple/Standard ---
Discharge Inst-Standard Discharge Medications New, Converted or Re-Newed RX: Other Patient Instructions/Follow Up Plan of Care/Instructions/FU: repeat colonoscopy in 3 years Activity as Tolerated: Yes Discharge Diet: No Restrictions JAMIA DE LEÓN MD Jun 30, 2017 2:39 pm
[2017-06-30 14:50] VITALS: BP 116/79
[2017-06-30 15:20] VITALS: BP 137/82
[2017-06-30 15:34] VITALS: BP 137/82
== END 2017-06-30 15:34 | disposition home or self-care (01) ==
LOC: ENDO 11:13
PROVIDERS: ATTEND Surgery
DX: D12.3 Benign neoplasm of transverse colon (principal); K57.30 Diverticulosis of large intestine without perforation or abscess without bleeding; N40.0 Benign prostatic hyperplasia without lower urinary tract symptoms; K64.8 Other hemorrhoids; Z88.8 Allergy status to other drugs, medicaments and biological substances; Z79.899 Other long term (current) drug therapy; Z95.1 Presence of aortocoronary bypass graft; Z95.5 Presence of coronary angioplasty implant and graft; I25.10 Atherosclerotic heart disease of native coronary artery without angina pectoris; E78.00 Pure hypercholesterolemia, unspecified; I10 Essential (primary) hypertension; Z87.891 Personal history of nicotine dependence; K21.9 Gastro-esophageal reflux disease without esophagitis; Z86.010 Personal history of colon polyps

== ENCOUNTER 2017-12-13 01:02 | Day surgery (SDC) | payer MEDICARE ==
[~2017-12-13] VITALS: Ht 175.3 cm; Wt 84.7 kg
[~2017-12-13 01:02] MED LIST changes: -L.AC1CAP5 PO; +PROBIOTIC BLEN1 EACH PO
--- OUTSIDE RECORDS SUMMARY | 2017-12-13 01:09 | XMS REPORT | Continuity of Care Document ---
Author Author [facility] Organization [facility] Address Unknown Phone Unavailable Allergies Active Description Code Type Severity Reaction Onset Reported/Identified Relationship to Patient Clinical Status Yes ranitidine HCl [id number] Drug Allergy Mild N/A 06/25/2011 Yes bee stings bee stings Unknown N/A 03/09/2016 Yes Shellfish [id number] Drug Allergy Unknown N/A 03/09/2016 Medications There is no data. Problems Date Dx Coded Attending Type Code Diagnosis Diagnosed By 01/10/2015 JAMES BEVERLY Ot 401.9 01/10/2015 JAMES BEVERLY Ot 414.9 01/10/2015 JAMES BEVERLY Ot 428.0 01/10/2015 JAMES BEVERLY Ot 433.30 01/11/2015 JAMES BEVERLY Ot [...] MD Ot I25.10 ATHSCL HEART DISEASE OF [place] CORONARY 03/11/2016 NICOLASA SANDHU MD Ot I25.810 [...] CONGESTIVE HEART FAILURE NOS 06/16/2017 ELISSA CULLEN SENIOR TELECOMMUNICATIONS ENGINEER Ot 241.0 NONTOX UNINODULAR GOITER 06/16/2017 ELISSA CULLEN SENIOR TELECOMMUNICATIONS ENGINEER Ot 784.2 SWELLING IN HEAD NECK 06/16/2017 [...] Ot E03.9 HYPOTHYROIDISM, UNSPECIFIED 06/25/2017 NICOLASA SANDHU MD Ot E78.2 MIXED HYPERLIPIDEMIA 06/25/2017 NICOLASA SANDHU MD Ot I10 ESSENTIAL (PRIMARY) HYPERTENSION 06/25/2017 NICOLASA SANDHU MD Ot I25.10 ATHSCL HEART DISEASE OF [place] CORONARY 06/25/2017 NICOLASA SANDHU MD Ot 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 06/25/2017 NICOLASA SANDHU MD Ot E03.9 HYPOTHYROIDISM, UNSPECIFIED 06/25/2017 NICOLASA SANDHU MD Ot E78.5 HYPERLIPIDEMIA, UNSPECIFIED 06/25/2017 NICOLASA SANDHU MD Ot I11.0 HYPERTENSIVE HEART DISEASE WITH HEART FA 06/25/2017 NICOLASA SANDHU MD Ot I25.10 ATHSCL HEART DISEASE OF [place] CORONARY 06/25/2017 NICOLASA SANDHU MD Ot I25.2 OLD MYOCARDIAL INFARCTION 06/25/2017 NICOLASA SANDHU MD Ot I35.0 NONRHEUMATIC AORTIC (VALVE) STENOSIS 06/25/2017 NICOLASA SANDHU MD Ot I50.30 UNSPECIFIED DIASTOLIC (CONGESTIVE) HEART 06/25/2017 NICOLASA SANDHU MD Ot I73.9 PERIPHERAL VASCULAR DISEASE, UNSPECIFIED 06/25/2017 NICOLASA SANDHU MD Ot Z79.02 LONGTERM (CURRENT) USE OF ANTITHROMBOTI 06/25/2017 NICOLASA SANDHU MD Ot Z79.82 LONGTERM (CURRENT) USE OF ASPIRIN 06/25/2017 NICOLASA SANDHU MD Ot Z79.899 OTHER LONGTERM (CURRENT) DRUG THERAPY 06/25/2017 NICOLASA SANDHU MD Ot Z95.1 PRESENCE OF AORTOCORONARY BYPASS GRAFT 06/25/2017 NICOLASA SANDHU MD Ot Z95.5 PRESENCE OF CORONARY ANGIOPLASTY IMPLANT 06/27/2017 JAMIA DE LEÓN MD Ot K62.5 HEMORRHAGE OF ANUS AND RECTUM 06/27/2017 JAMIA DE LEÓN MD Ot Z01.818 ENCOUNTER FOR OTHER PREPROCEDURAL EXAMIN 06/27/2017 JAMIA DE LEÓN MD Ot Z86.010 PERSONAL HISTORY OF COLONIC POLYPS 06/27/2017 NICOLASA SANDHU MD Ot E03.9 HYPOTHYROIDISM, UNSPECIFIED 06/27/2017 NICOLASA SANDHU MD Ot E78.2 MIXED HYPERLIPIDEMIA 06/27/2017 NICOLASA SANDHU MD Ot I10 ESSENTIAL (PRIMARY) HYPERTENSION 06/27/2017 NICOLASA SANDHU MD Ot I25.10 ATHSCL HEART DISEASE OF [place] CORONARY 06/27/2017 NICOLASA SANDHU MD Ot 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 06/30/2017 JAMIA DE LEÓN MD Ot D12.3 BENIGN NEOPLASM OF TRANSVERSE COLON 06/30/2017 JAMIA DE LEÓN MD Ot E78.00 PURE HYPERCHOLESTEROLEMIA, UNSPECIFIED 06/30/2017 JAMIA DE LEÓN MD Ot I10 ESSENTIAL (PRIMARY) HYPERTENSION 06/30/2017 JAMIA DE LEÓN MD Ot I25.10 ATHSCL HEART DISEASE OF [place] CORONARY 06/30/2017 JAMIA DE LEÓN MD Ot K21.9 GASTRO-ESOPHAGEAL REFLUX DISEASE WITHOUT 06/30/2017 JAMIA DE LEÓN MD Ot K57.30 DVRTCLOS OF LG INT W/O PERFORATION OR AB 06/30/2017 JAMIA DE LEÓN MD Ot K64.8 OTHER HEMORRHOIDS 06/30/2017 JAMIA DE LEÓN MD Ot N40.0 BENIGN PROSTATIC HYPERPLASIA WITHOUT LOW 06/30/2017 JAMIA DE LEÓN MD Ot Z79.899 OTHER LONGTERM (CURRENT) DRUG THERAPY 06/30/2017 JAMIA DE LEÓN MD Ot Z86.010 PERSONAL HISTORY OF COLONIC POLYPS 06/30/2017 JAMIA DE LEÓN MD Ot Z87.891 PERSONAL HISTORY OF NICOTINE DEPENDENCE 06/30/2017 JAMIA DE LEÓN MD Ot Z88.8 ALLERGY STATUS TO OT DRUG/MEDS/BIOL SUB 06/30/2017 JAMIA DE LEÓN MD Ot Z95.1 PRESENCE OF AORTOCORONARY BYPASS GRAFT 06/30/2017 JAMIA DE LEÓN MD Ot Z95.5 PRESENCE OF CORONARY ANGIOPLASTY IMPLANT 07/01/2017 NICOLASA SANDHU MD Ot E03.9 HYPOTHYROIDISM, UNSPECIFIED 07/01/2017 NICOLASA SANDHU MD Ot E78.5 HYPERLIPIDEMIA, UNSPECIFIED 07/01/2017 NICOLASA SANDHU MD Ot I11.0 HYPERTENSIVE HEART DISEASE WITH HEART FA 07/01/2017 NICOLASA SANDHU MD, Ot I25.10 ATHSCL HEART DISEASE OF [place] CORONARY 07/01/2017 NICOLASA SANDHU MD, Ot I25.2 OLD MYOCARDIAL INFARCTION 07/01/2017 NICOLASA SANDHU MD, Ot I35.0 NONRHEUMATIC AORTIC (VALVE) STENOSIS 07/01/2017 NICOLASA SANDHU MD, Ot I50.30 UNSPECIFIED DIASTOLIC (CONGESTIVE) HEART 07/01/2017 NICOLASA SANDHU MD, Ot I73.9 PERIPHERAL VASCULAR DISEASE, UNSPECIFIED 07/01/2017 NICOLASA SANDHU MD, Ot Z79.02 PRIVATE CHEF (CURRENT) USE OF ANTITHROMBOTI 07/01/2017 NICOLASA SANDHU MD, Ot Z79.82 PRIVATE CHEF (CURRENT) USE OF ASPIRIN 07/01/2017 NICOLASA SANDHU MD, Ot Z79.899 OTHER LONGTERM (CURRENT) DRUG THERAPY 07/01/2017 NICOLASA SANDHU MD, Ot Z95.1 PRESENCE OF AORTOCORONARY BYPASS GRAFT 07/01/2017 NICOLASA SANDHU MD, Ot Z95.5 PRESENCE OF CORONARY ANGIOPLASTY IMPLANT 07/02/2017 JAMIA DE LEÓN MD, Ot D12.3 BENIGN NEOPLASM OF TRANSVERSE COLON 07/02/2017 JAMIA DE LEÓN MD, Ot E78.00 PURE HYPERCHOLESTEROLEMIA, UNSPECIFIED 07/02/2017 JAMIA DE LEÓN MD, Ot I10 ESSENTIAL (PRIMARY) HYPERTENSION 07/02/2017 JAMIA DE LEÓN MD, Ot I25.10 ATHSCL HEART DISEASE OF [place] CORONARY 07/02/2017 JAMIA DE LEÓN MD Ot K21.9 GASTRO-ESOPHAGEAL REFLUX DISEASE WITHOUT 07/02/2017 JAMIA DE LEÓN MD, Ot K57.30 DVRTCLOS OF LG INT W/O PERFORATION OR AB 07/02/2017 JAMIA DE LEÓN MD, Ot K64.8 OTHER HEMORRHOIDS 07/02/2017 JAMIA DE LEÓN MD, Ot N40.0 BENIGN PROSTATIC HYPERPLASIA WITHOUT LOW 07/02/2017 JAMIA DE LEÓN MD, Ot Z79.899 OTHER LONGTERM (CURRENT) DRUG THERAPY 07/02/2017 JAMIA DE LEÓN MD, Ot Z86.010 PERSONAL HISTORY OF COLONIC POLYPS 07/02/2017 JAMIA DE LEÓN MD, Ot Z87.891 PERSONAL HISTORY OF NICOTINE DEPENDENCE 07/02/2017 JAMIA DE LEÓN MD Ot Z88.8 ALLERGY STATUS TO [facility] DRUG/MEDS/BIOL SUB 07/02/2017 SARTHAK ROMEO, JAMIA Doshi Ot Z95.1 PRESENCE OF AORTOCORONARY BYPASS GRAFT 07/02/2017 JAMIA DE LEÓN MD, Ot Z95.5 PRESENCE OF CORONARY ANGIOPLASTY IMPLANT 08/13/2017 NICOLASA SANDHU MD, Ot E03.9 HYPOTHYROIDISM, UNSPECIFIED 08/13/2017 NICOLASA SANDHU MD, Ot E78.2 MIXED HYPERLIPIDEMIA 08/13/2017 NICOLASA SANDHU MD, Ot I10 ESSENTIAL (PRIMARY) HYPERTENSION 08/13/2017 NICOLASA SANDHU MD, Ot I25.10 ATHSCL HEART DISEASE OF [place] CORONARY 08/13/2017 NICOLASA SANDHU MD, Ot 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 Procedures Code Description Performed By Performed On 400236I DILATION OF 1 COR ART WITH DRUG-ELUT INT 03/09/2016 10107NU DILATION OF CORONARY ARTERY, ONE SITE, P 03/09/2016 D9183SH FLUOROSCOPY OF MULT COR ART USING L OSM 03/09/2016 G1746UN FLUOROSCOPY OF MULT COR A GRAFT USING L 03/09/2016 [id number] FLUOROSCOPY OF L INT MAMM GRAFT USING [...] Status Pt. Type Provider Facility Loc./Unit Complaint [id number] 06/30/2017 11:13:00 06/30/2017 15:34:00 DIS Outpatient JAMIA DE LEÓN MD [facility] ENDO RECTAL BLEEDING/HX POLYPS [id number] 06/25/2017 10:16:00 06/25/2017 16:54:00 DIS Outpatient NICOLASA SANDHU MD [facility] CATH ABN STRESS,CAD,HLP [id number] 06/24/2017 05:37:00 06/24/2017 13:00:00 DIS Outpatient JAMIA DE LEÓN MD [facility] PREOP COLONOSCOPY [id number] 06/23/2017 07:59:00 06/23/2017 23:59:59 CLS Outpatient NICOLASA SANDHU MD [facility] CARD CAD I25.10 [id number] 06/17/2017 08:51:00 06/17/2017 23:59:59 CLS Outpatient NICOLASA SANDHU MD [facility] CARD CAD [id number] 03/09/2016 19:26:00 03/11/2016 11:05:00 DIS Inpatient NICOLASA SANDHU MD [facility] ICU CP/HEART CATH [id number] 04/10/2015 07:59:00 04/10/2015 23:59:59 CLS Outpatient NICOLASA SANDHU MD [facility] CARD CAD,HTN, CARTOID STENSIS [id number] 12/30/2014 08:22:00 12/30/2014 23:59:59 CLS Outpatient JAMES BEVERLY [facility] CARD CAD CHF CAROTID STENOSIS [id number] 01/12/2014 07:36:00 01/12/2014 23:59:59 CLS Outpatient NICOLASA SANDHU MD [facility] CARD CAD,HTN,CHF,HLP [id number] 10/19/2013 11:21:00 10/19/2013 23:59:59 CLS Outpatient ELISSA CULLEN [facility] RAD SUBMANDIBULAR ENLARGEMENT [id number] 10/13/2013 11:06:00 10/13/2013 23:59:59 CLS Outpatient ELISSA CULLEN SENIOR TELECOMMUNICATIONS ENGINEER [facility] RAD HYPOTHRYOIDISM, ENLARGED THYROID [id number] 04/28/2013 07:10:00 04/28/2013 23:59:59 CLS Outpatient NICOLASA SANDHU MD [facility] RAD CHF,CAD [id number] 04/20/2013 10:48:00 04/20/2013 23:59:59 CLS Outpatient [id number] 03/04/2013 11:23:00 03/04/2013 23:59:59 CLS Outpatient 0000 05/29/2017 10:14:35 05/29/2017 23:59:59 CLS Outpatient [place], [place]
--- NOTE | 2017-12-13 01:28 | ED Chest Pain ---
General Stated Complaint: UPPER ABD PAIN,RT HAND NUMB,NAUSEA Source: patient Exam Limitations: no limitations History of Present Illness Date Seen by Provider: Dec 13, 2017 Time Seen by Provider: 01:08 Initial Comments Here with report of central abdominal pain in the xiphoid to umbilicus region as well as pain that radiates to the left lower chest. Does have nausea but no vomiting. Also complains of right hand numbness but states this is more of a chronic problem. Does have problems with constipation. Denies diarrhea. Denies blood in his stool currently. Denies breathing problems. Does have extensive cardiac history including stent placement and is on Plavix. Timing/Duration: changing over time, 12 hours Severity/Quality: moderate, aching Location: other (left anterior lower chest wall) Radiation: other (central abdomen) Activities at Onset: none Prior CP/Workup: cardiac cath, echocardiography, heart attack Modifying Factors: improves with other (none) ASA po REMITTANCE CLERK: Yes (baby aspirin daily) NTG SL REMITTANCE CLERK: No Associated Symptoms: abdominal pain, back pain; No edema; nausea/vomiting; No shortness of breath, No swelling/lump in chest, No weakness Allergies and Home Medications Allergies Coded Allergies: Shellfish (Verified Allergy, Unknown, 03/09/16) ranitidine HCl (Verified Adverse Reaction, Mild, 06/25/11) Uncoded Allergies: bee stings (Allergy, Unknown, 03/09/16) Home Medications Aspirin 81 Mg Tablet.dr, 81 MG PO DAILY, (Reported) Carvedilol 6.25 Mg Tablet, 6.25 MG PO BID, (Reported) Clopidogrel Bisulfate 75 Mg Tablet, 75 MG PO DAILY, (Reported) Fish Oil/Dha/Epa 1 Each Capsule, 1,200 MG PO BID, (Reported) L.acid/L.casei/B.bif/B.mika/Fos 1 Each Capsule, 1 CAP PO DAILY, (Reported) Levothyroxine Sodium 112 Mcg Tablet, 112 MCG PO DAILY, (Reported) Lisinopril 5 Mg Tablet, 5 MG PO DAILY, (Reported) Multivits-Minerals/FA/Lycopene 1 Each Tablet, 1 TAB PO DAILY, (Reported) Niacin 500 Mg Capsule.er, 500 MG PO BID, (Reported) Pantoprazole Sodium 40 Mg Tablet.dr, 40 MG PO DAILY, (Reported) Ubidecarenone 200 Mg Capsule, 200 MG PO DAILY, (Reported) Patient Home Medication List Home Medication List Reviewed: Yes Review of Systems Constitutional: see HPI; No chills, No fever EENTM: No Symptoms Reported Respiratory: No Symptoms Reported; Denies Cough, Denies SOA at Rest, Denies Wheezing Cardiovascular: Chest Pain; Denies Edema, Denies Irregular Heart Rate, Denies Lightheadedness Gastrointestinal: Abdominal Pain, Constipated, Nausea; Denies Vomiting Genitourinary: No Symptoms Reported Musculoskeletal: back pain; No neck pain Skin: no symptoms reported Psychiatric/Neurological: Numbness; Denies Weakness Endocrine: No Symptoms Reported All Other Systems Reviewed Negative Unless Noted: Yes Past Jrzoany-Ddrxhu-Alqzsj Hx Past Med/Social Hx: Reviewed Nursing Past Med/Soc Hx Patient Social History Alcohol Use: Denies Use Recreational Drug Use: No Smoking Status: Former Smoker Type Used: Cigarettes Former Smoker, Quit: Jun 25, 1984 Recent Foreign Travel: No Contact w/Someone Who Travel: No Recent Hopitalizations: No Immunizations Up To Date Tetanus Booster (TDap): Unknown Date of Pneumonia Vaccine: Apr 29, 2015 Date of Influenza Vaccine: Apr 13, 2017 Seasonal Allergies Seasonal Allergies: No Past Medical History Surgeries: Yes CABG, Coronary Stent, Orthopedic, Vascular Surgery Currently Using CPAP: No Currently Using BIPAP: No Cardiac: Yes Coronary Artery Disease, High Cholesterol, Hypertension Reproductive Disorders: No Sexually Transmitted Disease: No Gastrointestinal: Yes Gastroesophageal Reflux, Polyps Musculoskeletal: No Endocrine: No HEENT: No Loss of Vision: Denies Hearing Impairment: Denies Family Medical History Reviewed Nursing Family Hx Heart Disease Physical Exam Vital Signs Vital Signs - First Documented 12/13/17 01:09 Temp 97.1 Pulse 65 Resp 17 B/P (MAP) 145/81 (102) Pulse Ox 94 O2 Delivery Room Air Capillary Refill : General Appearance: No Apparent Distress, WD/WN HEENT: PERRL/EOMI, Pharynx Normal Neck: Non Tender, Supple Respiratory: Lungs Clear, Normal Breath Sounds Cardiovascular: Regular Rate, Rhythm, Systolic Murmur (left sternal border and left lateral) Gastrointestinal: Non Tender, Soft Extremity: Normal Range of Motion, Non Tender Neurologic/Psychiatric: Alert, Oriented x3 Skin: Normal Color, Warm/Dry Progress/Results/Core Measures Results/Orders Lab Results Laboratory Tests Test 12/13/17 01:28 Range/Units White Blood Count 13.3 H 4.3-11.0 10^3/uL Red Blood Count 5.20 4.35-5.85 10^6/uL Hemoglobin 16.1 13.3-17.7 G/DL Hematocrit 46 40-54 % Mean Corpuscular Volume 88 80-99 FL Mean Corpuscular Hemoglobin 31 25-34 PG Mean Corpuscular Hemoglobin Concent 35 32-36 G/DL Red Cell Distribution Width 13.6 10.0-14.5 % Platelet Count 160 130-400 10^3/uL Mean Platelet Volume 11.6 H 7.4-10.4 FL Neutrophils (%) (Auto) 81 H 42-75 % Lymphocytes (%) (Auto) 8 L 12-44 % Monocytes (%) (Auto) 10 0-12 % Eosinophils (%) (Auto) 1 0-10 % Basophils (%) (Auto) 0 0-10 % Neutrophils # (Auto) 10.8 H 1.8-7.8 X 10^3 Lymphocytes # (Auto) 1.1 1.0-4.0 X 10^3 Monocytes # (Auto) 1.3 H 0.0-1.0 X 10^3 Eosinophils # (Auto) 0.1 0.0-0.3 10^3/uL Basophils # (Auto) 0.0 0.0-0.1 10^3/uL Prothrombin Time 14.0 12.2-14.7 SEC INR Comment 1.1 0.8-1.4 Activated Partial Thromboplast Time 29 24-35 SEC D-Dimer 0.79 H 0.00-0.49 UG/ML Sodium Level 140 135-145 MMOL/L Potassium Level 4.4 3.6-5.0 MMOL/L Chloride Level 107 98-107 MMOL/L Carbon Dioxide Level 22 21-32 MMOL/L Anion Gap 11 5-14 MMOL/L Blood Urea Nitrogen 19 H 7-18 MG/DL Creatinine 1.26 0.60-1.30 MG/DL Estimat Glomerular Filtration Rate 55 BUN/Creatinine Ratio 15 Glucose Level 153 H 70-105 MG/DL Calcium Level 9.7 8.5-10.1 MG/DL Magnesium Level 1.8 1.8-2.4 MG/DL Total Bilirubin 1.1 H 0.1-1.0 MG/DL Aspartate Amino Transf (AST/SGOT) 18 5-34 U/L Alanine Aminotransferase (ALT/SGPT) 22 0-55 U/L Alkaline Phosphatase 78 40-136 U/L Myoglobin 36.8 10.0-92.0 NG/ML Troponin I < 0.30 <0.30 NG/ML Total Protein 7.0 6.4-8.2 GM/DL Albumin 3.9 3.2-4.5 GM/DL Lipase 12 8-78 U/L My Orders Orders - YONATAN SOTOMAYOR MD Cbc With Automated Diff (12/13/17:17) Magnesium (12/13/17:17) Chest 1 View, Ap/Pa Only (12/13/17:17) Ekg Tracing (12/13/17:17) Cardiac Profile 1 (12/13/17) Comprehensive Metabolic Panel (12/13/17:) Myoglobin Serum (12/13/17:17) Protime With Inr (12/13/17:17) Partial Thromboplastin Time (12/13/17:17) O2 (12/13/17:17) Monitor-Rhythm Ecg Trace Only (12/13/17:17) Lipid Panel (12/14/17 06:00) Saline Lock/Iv-Start (12/13/17 01:17) Lipase (12/13/17:17) Fibrin Degradation Products (12/13/17 01:17) Morphine Injection (Morphine Injection (12/13/17 01:29) Ct Angio Chst/Abd/Pelv W (12/13/17 02:19) Saline Lock/Iv-Start (12/13/17 02:21) Ns Iv 1000 Ml (Sodium Chloride 0.9%) (12/13/17 02:21) Morphine Injection (Morphine Injection (12/13/17 02:28) Medications Given in ED Current Medications Medications Dose Ordered Sig/Marcell Route Start Time Stop Time Status Last Admin Dose Admin Sodium Chloride 1,000 ml @ 0 mls/hr Q0M ONCE IV 12/13/17 02:21 12/13/17 02:22 DC 12/13/17 02:33 1,000 MLS/HR Vital Signs/I&O 12/13/17 01:09 Temp 97.1 Pulse 65 Resp 17 B/P (MAP) 145/81 (102) Pulse Ox 94 O2 Delivery Room Air Progress Progress Note : Progress Note Seen and evaluated. IV, labs, EKG and chest x-ray ordered. CT angiogram of the chest, abdomen and pelvis ordered due to elevated d-dimer. Normal saline 1 L bolus ordered afterwards. Patient received morphine 2 mg IV initially for pain. This did not help. 6 mg IV ordered afterwards. 0411: I did discuss the case with Dr. Marshall. CT shows findings concerning for possible acute cholecystitis. Labs and evaluation would indicate this is likely with elevated white count and mild elevation of total bilirubin. Reexamination of the patient shows right upper quadrant pain greater than pain in the rest of the abdomen. Dr. Marshall accepts patient for admission, inpatient status. Patient will need medical and cardiology clearance. Hold Plavix. We will consult Dr. Reed in the morning for medical clearance on-call for Dr. Copeland. We will consult Dr. Cid for cardiology clearance as he is the patient's primary staff internist office based only. This will be done in the morning as well. Patient and family agree to plan. Rocephin 1 g IV. Fentanyl 50 g IV for continued pain. Initial ECG Impression Date: Dec 13, 2017 Initial ECG Impression Time: 01:16 Initial ECG Rate: 80 Initial ECG Rhythm: Normal Sinus Comment Sinus rhythm with PVCs. Left axis deviation. T wave inversions noted. Overall similar in appearance to 09 March 2016 with some P-wave changes that are new. These are noted in lead 3 and aVF. Interpreted by me. No evidence of ST elevation [place]. Diagnostic Imaging Diagonstic Imaging: CT Plain Films/CT/US/NM/MRI: chest, abdomen, pelvis Comments No evidence for aortic aneurysm or aortic dissection. Infrarenal abdominal aortic aneurysm measuring 3.3 cm in maximum transverse dimensions are no evidence for aortic dissection or aneurysm rupture. Multiple gallstones in the gallbladder. There is question of some mild pericholecystic inflammatory changes. Acute cholecystitis cannot be excluded. Correlation with clinical findings as recommended. Reviewed: Reviewed Night Zachk Study, Reviewed by Me Departure Communication (Admissions) Time/Spoke to Admitting Phy: 04:11 Impression Primary Impression: Acute cholecystitis Additional Impression: Chest pain Qualified Codes: R07.9 - Chest pain, unspecified Disposition: ADMITTED INPATIENT Condition: Stable Admissions Decision to Admit Reason: Admit from ER (General) Decision to Admit/Date: Dec 13, 2017 Time/Decision to Admit Time: 04:11 Departure-Patient Inst. Referrals: LUAN COPELAND MD (PCP/Family) Primary Care Physician YONATAN SOTOMAYOR MD Dec 13, 2017 01:28
[2017-12-13] MEDS ORDERED: morphine INJ 10 MG/ML 1ML (SYR OR VIAL) IVP STA ×2 (01:29→02:28)
[2017-12-13 01:38] LABS: BASOPHILS % (AUTO) 0 % (0-10); EOSINOPHILS # (AUTO) 0.1 10^3/uL (0.0-0.3); EOSINOPHILS % (AUTO) 1 % (0-10); HEMATOCRIT 46 % (40-54); HEMOGLOBIN 16.1 G/DL (13.3-17.7); LYMPHOCYTES # (AUTO) 1.1 X 10^3 (1.0-4.0); LYMPHOCYTES % (AUTO) 8 % (12-44); MEAN CORPUSCULAR HEMOGLOBIN 31 PG (25-34); MEAN CORPUSCULAR HGB CONC 35 G/DL (32-36); MEAN CORPUSCULAR VOLUME 88 FL (80-99); MEAN PLATELET VOLUME 11.6 FL (7.4-10.4); MONOCYTES # (AUTO) 1.3 X 10^3 (0.0-1.0); MONOCYTES % (AUTO) 10 % (0-12); NEUTROPHILS # (AUTO) 10.8 X 10^3 (1.8-7.8); NEUTROPHILS % (AUTO) 81 % (42-75); PLATELET COUNT 160 10^3/uL (130-400); RED CELL DISTRIBUTION WIDTH 13.6 % (10.0-14.5); WHITE BLOOD COUNT 13.3 10^3/uL (4.3-11.0)
[2017-12-13] MEDS ORDERED: ROSU5TAB11 PO (01:46)
[2017-12-13 01:47] LABS: INR 1.1 (0.8-1.4)
[2017-12-13 02:02] LABS: MYOGLOBIN SERUM 36.8 NG/ML (10.0-92.0)
[2017-12-13 02:06] LABS: ALANINE AMINOTRANSFERASE 22 U/L (0-55); ALBUMIN 3.9 GM/DL (3.2-4.5); ALKALINE PHOSPHATASE 78 U/L (40-136); BILIRUBIN,TOTAL 1.1 MG/DL (0.1-1.0); BUN/CREATININE RATIO 15; CALCIUM 9.7 MG/DL (8.5-10.1); CARBON DIOXIDE 22 MMOL/L (21-32); CHLORIDE 107 MMOL/L (98-107); CREATININE SERUM 1.26 MG/DL (0.60-1.30); GFR ESTIMATED 55; GLUCOSE 153 MG/DL (70-105); LIPASE 12 U/L (8-78); MAGNESIUM 1.8 MG/DL (1.8-2.4); POTASSIUM 4.4 MMOL/L (3.6-5.0); SODIUM 140 MMOL/L (135-145)
[2017-12-13] MEDS ORDERED: NS IV 1000 ML 1,000 ML IV ONE (02:21)
[2017-12-13] MEDS ORDERED: fentaNYL INJECTION 100 MCG/2 ML AMP IVP STA (04:12)
[2017-12-13] MEDS ORDERED: cefTRIAXone INJECTION 1,000 MG in NS (IVPB) 50 ML IV ONE (04:15)
--- OUTSIDE RECORDS SUMMARY | 2017-12-13 04:29 | XMS REPORT | Continuity of Care Document ---
Author Author [facility] Organization [facility] Address Unknown Phone Unavailable Allergies Active Description Code Type Severity Reaction Onset Reported/Identified Relationship to Patient Clinical Status Yes ranitidine HCl [id number] Drug Allergy Mild N/A 06/25/2011 Yes bee stings bee stings Unknown N/A 03/09/2016 Yes Shellfish [id number] Drug Allergy Unknown N/A 03/09/2016 Medications There [...] MD Ot I25.10 ATHSCL HEART DISEASE OF [place] CORONARY 03/11/2016 NICOLASA SANDHU MD Ot I25.810 [...] CONGESTIVE HEART FAILURE NOS 06/16/2017 ELISSA CULLEN [employer] Ot 241.0 NONTOX UNINODULAR GOITER 06/16/2017 ELISSA CULLEN [employer] Ot 784.2 SWELLING IN HEAD NECK 06/16/2017 [...] MD Ot I25.10 ATHSCL HEART DISEASE OF [place] CORONARY 06/25/2017 NICOLASA SANDHU MD Ot 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 06/25/2017 NICOLASA SANDHU MD Ot E03.9 HYPOTHYROIDISM, UNSPECIFIED 06/25/2017 NICOLASA SANDHU MD Ot E78.5 HYPERLIPIDEMIA, UNSPECIFIED 06/25/2017 NICOLASA SANDHU MD Ot I11.0 HYPERTENSIVE HEART DISEASE WITH HEART FA 06/25/2017 NICOLASA SNADHU MD Ot I25.10 ATHSCL HEART DISEASE OF [place] CORONARY 06/25/2017 NICOLASA SANDHU MD Ot I25.2 OLD MYOCARDIAL INFARCTION 06/25/2017 NICOLASA SANDHU MD Ot I35.0 NONRHEUMATIC AORTIC (VALVE) STENOSIS 06/25/2017 NICOLASA SANDHU MD Ot I50.30 UNSPECIFIED DIASTOLIC (CONGESTIVE) HEART 06/25/2017 NICOLASA SANDHU MD Ot I73.9 PERIPHERAL VASCULAR DISEASE, UNSPECIFIED 06/25/2017 NICOLASA SANDHU MD Ot Z79.02 HALFWAY (CURRENT) USE OF ANTITHROMBOTI 06/25/2017 NICOLASA SANDHU MD Ot Z79.82 HALFWAY (CURRENT) USE OF ASPIRIN 06/25/2017 NICOLASA SANDHU MD Ot Z79.899 OTHER HALFWAY (CURRENT) DRUG THERAPY 06/25/2017 NICOLASA SANDHU MD [...] MD Ot I25.10 ATHSCL HEART DISEASE OF [place] CORONARY 06/27/2017 NICOLASA SANDHU MD Ot 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 06/30/2017 JAMIA DE LEÓN MD Ot D12.3 BENIGN NEOPLASM OF TRANSVERSE COLON 06/30/2017 JAMIA DE LEÓN MD Ot E78.00 PURE HYPERCHOLESTEROLEMIA, UNSPECIFIED 06/30/2017 JAMIA DE LEÓN MD Ot I10 ESSENTIAL (PRIMARY) HYPERTENSION 06/30/2017 JAMIA DE LEÓN MD Ot I25.10 ATHSCL HEART DISEASE OF [place] CORONARY 06/30/2017 JAMIA DE LEÓN MD Ot K21.9 GASTRO-ESOPHAGEAL REFLUX DISEASE WITHOUT 06/30/2017 JAMIA DE LEÓN MD Ot K57.30 DVRTCLOS OF LG INT W/O PERFORATION OR AB 06/30/2017 JAMIA DE LEÓN MD Ot K64.8 OTHER HEMORRHOIDS 06/30/2017 JAMIA DE LEÓN MD Ot N40.0 BENIGN PROSTATIC HYPERPLASIA WITHOUT LOW 06/30/2017 JAMIA DE LEÓN MD Ot Z79.899 OTHER HALFWAY (CURRENT) DRUG THERAPY 06/30/2017 JAMIA DE LEÓN [...] MD, Ot I25.10 ATHSCL HEART DISEASE OF [place] CORONARY 07/01/2017 NICOLASA SANDHU MD, Ot I25.2 OLD MYOCARDIAL INFARCTION 07/01/2017 NICOLASA SANDHU MD, Ot I35.0 NONRHEUMATIC AORTIC (VALVE) STENOSIS 07/01/2017 NICOLASA SANDHU MD, Ot I50.30 UNSPECIFIED DIASTOLIC (CONGESTIVE) HEART 07/01/2017 NICOLASA SANDHU MD, Ot I73.9 PERIPHERAL VASCULAR DISEASE, UNSPECIFIED 07/01/2017 NICOLASA SANDHU MD, Ot 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 07/01/2017 NICOLASA SANDHU MD, Ot Z79.82 BACK HOE MACHINE OPERATOR (CURRENT) USE OF ASPIRIN 07/01/2017 NICOLASA SANDHU MD, Ot Z79.899 OTHER HALFWAY (CURRENT) DRUG THERAPY 07/01/2017 NICOLASA SANDHU MD, [...] MD, Ot I25.10 ATHSCL HEART DISEASE OF [place] CORONARY 07/02/2017 JAMIA DE LEÓN MD Ot K21.9 GASTRO-ESOPHAGEAL REFLUX DISEASE WITHOUT 07/02/2017 JAMIA DE LEÓN MD, Ot K57.30 DVRTCLOS OF LG INT W/O PERFORATION OR AB 07/02/2017 JAMIA DE LEÓN MD, Ot K64.8 OTHER HEMORRHOIDS 07/02/2017 JAMIA DE LEÓN MD, Ot N40.0 BENIGN PROSTATIC HYPERPLASIA WITHOUT LOW 07/02/2017 JAMIA DE LEÓN MD, Ot Z79.899 OTHER HALFWAY (CURRENT) DRUG THERAPY 07/02/2017 JAMIA DE LEÓN MD, Ot Z86.010 PERSONAL HISTORY OF COLONIC POLYPS 07/02/2017 JAMIA DE LEÓN MD, Ot Z87.891 PERSONAL HISTORY OF NICOTINE DEPENDENCE 07/02/2017 JAMIA DE LEÓN MD Ot Z88.8 ALLERGY STATUS TO [facility] DRUG/MEDS/BIOL SUB 07/02/2017 SARTHAK ROMEO, JAMIA Doshi Ot Z95.1 PRESENCE OF AORTOCORONARY BYPASS GRAFT 07/02/2017 JAMIA DE LEÓN MD, Ot Z95.5 PRESENCE OF CORONARY ANGIOPLASTY IMPLANT 08/13/2017 NICOLASA SANDHU MD, Ot E03.9 HYPOTHYROIDISM, UNSPECIFIED 08/13/2017 NICOLASA SANDHU MD, Ot E78.2 MIXED HYPERLIPIDEMIA 08/13/2017 NICOLASA SANDHU MD, Ot I10 ESSENTIAL (PRIMARY) HYPERTENSION 08/13/2017 NICOLASA SANDHU MD, Ot I25.10 ATHSCL HEART DISEASE OF [place] CORONARY 08/13/2017 NICOLASA SANDHU MD, Ot 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 Procedures Code Description Performed By Performed On 221099Y DILATION OF 1 COR ART WITH DRUG-ELUT INT 03/09/2016 68127AM DILATION OF CORONARY ARTERY, ONE SITE, P 03/09/2016 [id number] FLUOROSCOPY OF MULT COR ART USING L OSM 03/09/2016 [id number] FLUOROSCOPY OF MULT COR A GRAFT USING L 03/09/2016 [id number] FLUOROSCOPY OF L INT MAMM GRAFT USING [...] resistant Staphylococcus aureus (MRSA) screening culture NEG NR Complete blood count (CBC) with automated white blood cell (WBC) differential - 12/13/17 01:28 Blood leukocytes automated count (number/volume) 13.3 10*3/uL 4.3-11.0 Blood erythrocytes automated count (number/volume) 5.20 10*6/uL 4.35-5.85 Venous blood hemoglobin measurement (mass/volume) 16.1 g/dL 13.3-17.7 Blood hematocrit (volume fraction) 46 % 40-54 Automated erythrocyte mean corpuscular volume 88 [foz_us] 80-99 Automated erythrocyte mean corpuscular hemoglobin (mass per erythrocyte) 31 pg 25-34 Automated erythrocyte mean corpuscular hemoglobin concentration measurement ( mass/volume) 35 g/dL 32-36 Automated erythrocyte distribution width ratio 13.6 % 10.0-14.5 Automated blood platelet count (count/volume) 160 10*3/uL 130-400 Automated blood platelet mean volume measurement 11.6 [foz_us] 7.4-10.4 Automated blood neutrophils/100 leukocytes 81 % 42-75 Automated blood lymphocytes/100 leukocytes 8 % 12-44 Blood monocytes/100 leukocytes 10 % 0-12 Automated blood eosinophils/100 leukocytes 1 % 0-10 Automated blood basophils/100 leukocytes 0 % 0-10 Blood neutrophils automated count (number/volume) 10.8 10*3 1.8-7.8 Blood lymphocytes automated count (number/volume) 1.1 10*3 1.0-4.0 Blood monocytes automated count (number/volume) 1.3 10*3 0.0-1.0 Automated eosinophil count 0.1 10*3/uL 0.0-0.3 Automated blood basophil count (count/volume) 0.0 10*3/uL 0.0-0.1 PT panel in platelet poor plasma by coagulation assay - 12/13/17 01:28 Prothrombin time (PT) in platelet poor plasma by coagulation assay 14.0 s 12.2-14.7 INR in platelet poor plasma or blood by coagulation assay 1.1 0.8-1.4 Activated partial thromboplastin time (aPTT) in platelet poor plasma bycoagulation assay - 12/13/17 01:28 Activated partial thromboplastin time (aPTT) in platelet poor plasma bycoagulation assay 29 s 24-35 Fibrin D-dimer FEU measurement in platelet poor plasma (mass/volume) - 01:28 Fibrin D-dimer FEU measurement in platelet poor plasma (mass/volume) 0.79 ug/mL 0.00-0.49 Comprehensive metabolic panel - 12/13/17 01:28 Serum or plasma sodium measurement (moles/volume) 140 mmol/L 135-145 Serum or plasma potassium measurement (moles/volume) 4.4 mmol/L 3.6-5.0 Serum or plasma chloride measurement (moles/volume) 107 mmol/L 98-107 Carbon dioxide 22 mmol/L 21-32 Serum or plasma anion gap determination (moles/volume) 11 mmol/L 5-14 Serum or plasma urea nitrogen measurement (mass/volume) 19 mg/dL 7-18 Serum or plasma creatinine measurement (mass/volume) 1.26 mg/dL 0.60-1.30 Serum or plasma urea nitrogen/creatinine mass ratio 15 NRG Serum or plasma creatinine measurement with calculation of estimated glomerular filtration rate 55 NRG Serum or plasma glucose measurement (mass/volume) 153 mg/dL 70-105 Serum or plasma calcium measurement (mass/volume) 9.7 mg/dL 8.5-10.1 Serum or plasma total bilirubin measurement (mass/volume) 1.1 mg/dL 0.1-1.0 Serum or plasma alkaline phosphatase measurement (enzymatic activity/volume) 78 U/L 40-136 Serum or plasma aspartate aminotransferase measurement (enzymatic activity/ volume) 18 U/L 5-34 Serum or plasma alanine aminotransferase measurement (enzymatic activity/volume ) 22 U/L 0-55 Serum or plasma protein measurement (mass/volume) 7.0 g/dL 6.4-8.2 Serum or plasma albumin measurement (mass/volume) 3.9 g/dL 3.2-4.5 Magnesium - 12/13/17 01:28 Magnesium 1.8 mg/dL 1.8-2.4 Serum or plasma troponin i.cardiac measurement (mass/volume) - 12/13/17 01:28 Serum or plasma troponin i.cardiac measurement (mass/volume) < ng/ mL <0.30 Myoglobin, serum - 12/13/17 01:28 Myoglobin, serum 36.8 ng/mL 10.0-92.0 Lipase - 12/13/17 01:28 Lipase 12 U/L 8-78 Encounters ACCT No. Visit Date/Time Discharge Status Pt. Type Provider Facility Loc./Unit Complaint [id number] 06/30/2017 11:13:00 06/30/2017 15:34:00 DIS Outpatient JAMIA DE LEÓN MD [facility] ENDO RECTAL BLEEDING/HX POLYPS [id number] 06/25/2017 10:16:00 06/25/2017 16:54:00 DIS Outpatient NICOLASA SANDHU MD [facility] CATH ABN STRESS,CAD,HLP [id number] 06/24/2017 05:37:00 06/24/2017 13:00:00 DIS Outpatient JAMIA DE LEÓN MD [facility] PREOP COLONOSCOPY [id number] 06/23/2017 07:59:00 06/23/2017 23:59:59 CLS Outpatient NICOLASA SANDHU MD [facility] CARD CAD I25.10 [id number] 06/17/2017 08:51:00 06/17/2017 23:59:59 CLS Outpatient NICOLASA SANDHU MD [facility] CARD CAD [id number] 03/09/2016 19:26:00 03/11/2016 11:05:00 DIS Inpatient NICOLASA SANDHU MD [facility] ICU CP/HEART CATH [id number] 04/10/2015 07:59:00 04/10/2015 23:59:59 CLS Outpatient NICOLASA SANDHU MD [facility] CARD CAD,HTN, CARTOID STENSIS [id number] 12/30/2014 08:22:00 12/30/2014 23:59:59 CLS Outpatient JAMES BEVERLY [facility] CARD CAD CHF CAROTID STENOSIS [id number] 01/12/2014 07:36:00 01/12/2014 23:59:59 CLS Outpatient NICOLASA SANDHU MD [facility] CARD CAD,HTN,CHF,HLP [id number] 10/19/2013 11:21:00 10/19/2013 23:59:59 CLS Outpatient ELISSA CULLEN [facility] RAD SUBMANDIBULAR ENLARGEMENT [id number] 10/13/2013 11:06:00 10/13/2013 23:59:59 CLS Outpatient ELISSA CULLEN [employer] [facility] RAD HYPOTHRYOIDISM, ENLARGED THYROID [id number] 04/28/2013 07:10:00 04/28/2013 23:59:59 CLS Outpatient NICOLASA SANDHU MD [facility] RAD CHF,CAD [id number] 04/20/2013 10:48:00 04/20/2013 23:59:59 CLS Outpatient [id number] 03/04/2013 11:23:00 03/04/2013 23:59:59 CLS Outpatient [id number] 12/13/2017 01:39:00 Document Registration 0000 05/29/2017 10:14:35 05/29/2017 23:59:59 [facility] Outpatient Kenyatta Copeland
[2017-12-13 05:15] VITALS: BP 120/57
[2017-12-13] MEDS ORDERED: NS IV 1000 ML 1,000 ML ONE (05:19)
[2017-12-13] MEDS: NS IV 1000 ML 1,000 ML IV SCH ×2 (05:42→20:24)
[2017-12-13] MEDS ORDERED: ONDANSETRON 4 MG/2 ML (SDV) Z0FRAN IV PRN (05:45)
[2017-12-13 07:12] VITALS: BP 121/63
--- NOTE | 2017-12-13 07:21 | Diagnostic Imaging Report ---
PROCEDURE: CT angiography of the chest with contrast and CT abdomen and pelvis with contrast. TECHNIQUE: Multiple contiguous axial images were obtained through the chest, abdomen and pelvis after administration of intravenous contrast. Reconstructed MIP CT angiography acquisitions of the aorta were then performed. INDICATION: Chest pain accompanied by nausea. Study interpreted with abdominal pelvic CT nonenhanced performed 03/29/2012. FINDINGS: Chest: The thoracic aorta is patent and nonaneurysmal. No mural hemorrhage, dissection or rupture. There is coronary arterial vascular calcifications. There is no pleural or pericardial effusion. No acute soft tissue or osseous chest wall pathology. There is previous sternotomy without dehiscence. Old healed rib deformities chronic. No mass or adenopathy. The patient has a small hernia. Abdomen pelvis: The gallbladder is distended with multiple intraluminal stones. There is no biliary ductal dilatation. The spleen, adrenals and pancreas negative. Kidneys are unobstructed. There is atherosclerotic infrarenal abdominal aortic aneurysmal dilatation vessel measuring 3.2 cm AP by 2.9 cm transverse is unchanged from the CT of 2012. No perianeurysmal hemorrhage, edema or contrast extravasation. No extension into the iliacs. No dissection nor evidence for mural hemorrhage. Celiac superior mesenteric and inferior mesenteric arteries as well as those vessels primary branches were all patent. Some atherosclerotic plaque mixed soft and hard in the common iliacs without stenosis. There is some tortuosity of the bilateral patent external iliacs. The common femorals and proximal SFAs were normal. There were no findings of CT evidence for a hollow or solid end organ visceral involvement by ischemia. Is no obstructive features or inflammatory process. There is chronic sigmoid diverticulosis. There is no appendicitis. There is no lymphadenopathy. The osseous structures are nonacute. Impression: Chest: Atherosclerosis with no thoracic aneurysm or acute pathology. Small hiatal hernia noted. Abdomen pelvis: Distended stone containing gallbladder with questionable wall thickening. In the appropriate clinical scenario subtle changes of acute cholecystitis could not be excluded. If indicated gallbladder ultrasound may be of utility. Atherosclerotic mild infrarenal aortic aneurysmal dilatation unchanged from study of 2012 and without evidence for leak or rupture. Noninflamed diverticulosis. No bowel obstruction or acute urinary tract pathology. I agree with the preliminary. Dictated by: Dictated on workstation # [id number]
--- NOTE | 2017-12-13 07:45 | Diagnostic Imaging Report ---
INDICATION: Epigastric pain. Study compared to 06/25/2017. Sternal wires midline. There is some air trapping and COPD but no pneumonia, effusion, pneumothorax or acute failure pattern. IMPRESSION: No acute appearing abnormality. Dictated by: Dictated on workstation # [id number]
--- NOTE | 2017-12-13 09:23 | Consultation-Cardiology ---
HPI-Cardiology Cardiology Consultation Date of Consultation 12/13/17 Date of Admission Time Seen by Provider: 09:18 Indication: Coronary artery disease HPI 82 years old gentleman with history of coronary artery disease, hypertension and hyperlipidemia, started having abdominal pain and nausea, came into the emergency room and noted to have acute cholecystitis. Still having mild abdominal pain, his nausea is better. Denied any chest pain, shortness of breath, palpitation, syncope or near syncopal episodes. No pedal edema was reported. Has been compliant with his medication and he took his aspirin and Plavix last night Home Medications & Allergies Allergies: Coded Allergies: Shellfish (Verified Allergy, Unknown, 03/09/16) ranitidine HCl (Verified Adverse Reaction, Mild, 06/25/11) Uncoded Allergies: bee stings (Allergy, Unknown, 03/09/16) Home Medication List Reviewed: Yes [id number] Hx Patient Social History Marital Status: Employed/Student: retired Alcohol Use: Denies Use Recreational Drug Use: No Smoking Status: Former Smoker Type Used: Cigarettes Recent Foreign Travel: No Recent Infectious Disease Expo: No Recent Hopitalizations: No Physical Abuse Screen: No Sexual Abuse: No Immunizations Up To Date Tetanus Booster (TDap): Unknown Date of Pneumonia Vaccine: Apr 29, 2015 Date of Influenza Vaccine: Apr 13, 2017 Past Medical History Past medical history is discussed below Family Medical History Significant Family History: Heart Disease Family Medical Hx Noncontributory to his current medication Family History: FH: lung cancer Constitutional: see HPI EENTM: see HPI, no symptoms reported Respiratory: see HPI; No cough, No dyspnea on exertion, No hemoptysis, No orthopnea, No phlegm, No short of breath, No stridor, No wheezing, No other Cardiovascular: see HPI; No chest pain, No edema, No Hx of Intervention, No palpitations, No syncope, No vascular heart diseas, No other Gastrointestinal: RUQ, see HPI, nausea Genitourinary: no symptoms reported, see HPI Musculoskeletal: no symptoms reported, see HPI Skin: no symptoms reported, see HPI Psychiatric/Neurological: No Symptoms Reported, See HPI Reviewed Test Results Reviewed Test Results Lab Laboratory Tests Test 12/13/17 01:28 Range/Units White Blood Count 13.3 H 4.3-11.0 10^3/uL Red Blood Count 5.20 4.35-5.85 10^6/uL Hemoglobin 16.1 13.3-17.7 G/DL Hematocrit 46 40-54 % Mean Corpuscular Volume 88 80-99 FL Mean Corpuscular Hemoglobin 31 25-34 PG Mean Corpuscular Hemoglobin Concent 35 32-36 G/DL Red Cell Distribution Width 13.6 10.0-14.5 % Platelet Count 160 130-400 10^3/uL Mean Platelet Volume 11.6 H 7.4-10.4 FL Neutrophils (%) (Auto) 81 H 42-75 % Lymphocytes (%) (Auto) 8 L 12-44 % Monocytes (%) (Auto) 10 0-12 % Eosinophils (%) (Auto) 1 0-10 % Basophils (%) (Auto) 0 0-10 % Neutrophils # (Auto) 10.8 H 1.8-7.8 X 10^3 Lymphocytes # (Auto) 1.1 1.0-4.0 X 10^3 Monocytes # (Auto) 1.3 H 0.0-1.0 X 10^3 Eosinophils # (Auto) 0.1 0.0-0.3 10^3/uL Basophils # (Auto) 0.0 0.0-0.1 10^3/uL Prothrombin Time 14.0 12.2-14.7 SEC INR Comment 1.1 0.8-1.4 Activated Partial Thromboplast Time 29 24-35 SEC D-Dimer 0.79 H 0.00-0.49 UG/ML Sodium Level 140 135-145 MMOL/L Potassium Level 4.4 3.6-5.0 MMOL/L Chloride Level 107 98-107 MMOL/L Carbon Dioxide Level 22 21-32 MMOL/L Anion Gap 11 5-14 MMOL/L Blood Urea Nitrogen 19 H 7-18 MG/DL Creatinine 1.26 0.60-1.30 MG/DL Estimat Glomerular Filtration Rate 55 BUN/Creatinine Ratio 15 Glucose Level 153 H 70-105 MG/DL Calcium Level 9.7 8.5-10.1 MG/DL Magnesium Level 1.8 1.8-2.4 MG/DL Total Bilirubin 1.1 H 0.1-1.0 MG/DL Aspartate Amino Transf (AST/SGOT) 18 5-34 U/L Alanine Aminotransferase (ALT/SGPT) 22 0-55 U/L Alkaline Phosphatase 78 40-136 U/L Myoglobin 36.8 10.0-92.0 NG/ML Troponin I < 0.30 <0.30 NG/ML Total Protein 7.0 6.4-8.2 GM/DL Albumin 3.9 3.2-4.5 GM/DL Lipase 12 8-78 U/L Physical Exam Vital Signs Vital Signs - First Documented 12/13/17 01:09 Temp 97.1 Pulse 65 Resp 17 B/P (MAP) 145/81 (102) Pulse Ox 94 O2 Delivery Room Air Capillary Refill : Less Than 3 Seconds General Appearance: WD/WN, Mild Distress Eyes: Bilateral Eye Normal Inspection, Bilateral Eye PERRL, Bilateral Eye EOMI HEENT: PERRL/EOMI, TMs Normal, Normal ENT Inspection, Pharynx Normal Neck: Full Range of Motion, Normal Inspection, Non Tender, Supple, Carotid Bruit Respiratory: Chest Non Tender, Lungs Clear, Normal Breath Sounds, No Accessory Muscle Use, No Respiratory Distress Cardiovascular: Regular Rate, Rhythm, No Edema, No Gallop, No JVD, Normal Peripheral Pulses, Systolic Murmur Gastrointestinal: Normal Bowel Sounds, No Organomegaly, No Pulsatile Mass, Soft , Tenderness Back: Normal Inspection, No CVA Tenderness, No Vertebral Tenderness Extremity: Normal Capillary Refill, Normal Inspection, Normal Range of Motion, Non Tender, No Calf Tenderness, No Pedal Edema Neurologic/Psychiatric: Alert, Oriented x3, No Motor/Sensory Deficits, Normal Mood/Affect Skin: Normal Color, Warm/Dry Lymphatic: No Adenopathy A/P-Cardiology Admission Diagnosis Acute cholecystitis Coronary artery disease Hypertension Hyperlipidemia Assessment/Plan Acute cholecystitis, possible surgery, still having mild abdominal pain, nausea is better. Coronary artery disease, history of CABG 4 done in 2000 using MEYER to LAD, vein graft to the right coronary artery, vein graft to the diagonal artery, vein graft to the obtuse marginal branch. Cardiac catheterization was done in April 2012 showing patent bypass graft and the 3 stents to the right coronary artery were patent with excellent flow. In 2010, patient had 3.038 mm Ion stent 3.538 mm Ion stent and 3.528 mm Ion stent to the right coronary artery. History of Veriflex stent to the OM1 and 2010 and intra-aortic balloon pump due to slow flow. Admitted on March 09, 2016 with non-ST elevation myocardial infarction, had cardiac catheterization showed total occlusion of the diagonal artery was successful angioplasty to the vein graft to the diagonal artery then deployment of a focal stent in the [place] diagonal artery through the vein graft using 2.5 x 8 mm Promus Premier expanded to 2.75 with excellent results. Most recent cardiac catheterization done June 25, 2017 revealed severe small vessel disease at the distal diagonal artery and right coronary artery and LAD, Patent MEYER to LAD, patent vein graft to diagonal artery, the diagonal artery is known to have 2 stents, beyond the stent it is a hairline artery with small vessel disease. Patent vein graft to obtuse marginal branch with good flow distally. Known occluded vein graft to the right coronary artery, the [place] right coronary artery has multiple stents from the proximal to distal portion that are patent, beyond the bifurcation there is small vessel disease in the PDA. Last dose of aspirin and Plavix for last night, he may hold these medications in preparation for surgery History of Congestive heart failure, resolved, last echocardiogram was done in June 2017 showing ejection fraction 60-65 percent, mild aortic valve stenosis, PA pressure 25-30 mmHg. Continue to monitor Hypertension, continue to monitor blood pressure. Hyperlipidemia, has been on Lipitor 20 mg daily, hold for now Carotid stenosis, history of right CEA, carotid ultrasound was done in May 2017 showing mild bilateral disease nonobstructive disease Hypothyroidism, followed and managed by primary care physician. History of pulmonary hypertension, last echocardiogram showed normal PA pressure. Continue to monitor. Preoperative cardiac evaluation, patient is considered at intermediate to high risk for perioperative cardiovascular complications, decision regarding the surgery, risks versus benefit is deferred to the surgeon. May hold aspirin and Plavix for 5-7 days prior to the surgery and restart medications when deemed reasonable by the surgeon Clinical Quality Measures AMI/AHF: ASA po Prior to arrival: Yes (baby aspirin daily) DVT/VTE Risk/Contraindication: Risk Factor Score Per Nursin RFS Level Per Nursing on Admit: 4+=Very High NICOLASA SANDHU MD Dec 13, 2017 09:23
[2017-12-13] MEDS ORDERED: LEVOTHYROXINE 112 MCG (LEVOTHROID) TAB PO NR (09:45)
--- NOTE | 2017-12-13 09:54 | History & Physical-Hospitalist ---
History of Present Illness HPI/Chief Complaint Mr. Ashraf is an 82-year-old white male who reports he was in his usual state of health until approximately 5 o'clock p.m. the evening of December 12. He just finished mashed potatoes and roast beef and noted the onset of generalized abdominal pain was worse initially in the periumbilical area but then radiated upward. It was associated with nausea and radiated the precordium of his chest. He denied chills fever or radiation of pain to the back diarrhea melena or bright red blood per rectum. He has a history of coronary artery disease last intervention with stent placement in 2010. He stated it because he had been dizzy he did not take any of his medication on Friday or but did take aspirin and Plavix Friday. He had no previous symptoms like this. He presented emergency room as d-dimer was minimally elevated at 0.[address] angiogram of the chest and abdomen had no evidence for blood clots but did have evidence for gallstones with some paracolic cystic fluid consistent with acute cholecystitis. He's been nothing by mouth and reports some mild abdominal discomfort this morning but is no longer having any nausea. He reports that he is not currently hungry. Date Seen 12/13/17 Time Seen by Provider: 07:30 Attending Physician Ava Reed M.D. PCP Kenyatta Copeland MD Referring Physician Date of Admission Dec 13, 2017 at 04:10 Home Medications & Allergies Home Medications Reviewed patient Home Medication Reconciliation performed by pharmacy medication reconciliations radioisotope technician and/or nursing. Patients Allergies have been reviewed. Allergies Allergies Coded Allergies Shellfish (Verified Allergy, Unknown, 03/09/16) ranitidine HCl (Verified Adverse Reaction, Mild, 06/25/11) Uncoded Allergies bee stings ( Allergy, Unknown, 03/09/16) Past Qtdvqoc-Lwjxvd-Juzyzr Hx Past Med/Social Hx: Reviewed Nursing Past Med/Soc Hx Patient Social History Marrital Status: Employed/Student: retired Alcohol Use: Denies Use Recreational Drug Use: No Smoking Status: Former Smoker Former Smoker, Quit: Jun 25, 1984 Type Used: Cigarettes Physical Abuse Screen: No Sexual Abuse: No Recent Foreign Travel: No Contact w/other who traveled: No Recent Hopitalizations: No Recent Infectious Disease Expo: No Immunizations Up To Date Tetanus Booster (TDap): Unknown Date of Pneumonia Vaccine: Apr 29, 2015 Date of Influenza Vaccine: Apr 13, 2017 Seasonal Allergies Seasonal Allergies: No Past Medical History Surgeries: CABG, Coronary Stent, Orthopedic, Vascular Surgery Currently Using CPAP: No Currently Using BIPAP: No Cardiac: Coronary Artery Disease, High Cholesterol, Hypertension Reproductive: No Sexually Transmitted Disease: No Gastrointestinal: Gastroesophageal Reflux, Chronic Constipation, Polyps Loss of Vision: Denies Hearing Impairment: Denies History of Blood Disorders: No Family History Reviewed Nursing Family Hx FH: lung cancer Heart Disease Review of Systems Constitutional: no symptoms reported, see HPI Respiratory: no symptoms reported, see HPI; No cough, No dyspnea on exertion, No orthopnea, No phlegm, No short of breath Gastrointestinal: see HPI, abdominal pain, other (Reports mild mid abdominal discomfort only nausea currently resolved.) Genitourinary: No no symptoms reported, No see HPI, No discharge, No dysuria, No frequency, No hematuria, No incontinence Physical Exam Physical Exam Vital Signs Vital Signs - First Documented 12/13/17 01:09 Temp 97.1 Pulse 65 Resp 17 B/P (MAP) 145/81 (102) Pulse Ox 94 O2 Delivery Room Air Capillary Refill : Less Than 3 Seconds General Appearance: No Apparent Distress, WD/WN Neck: Full Range of Motion, Normal Inspection, Non Tender, Supple Respiratory: Chest Non Tender, Lungs Clear, Normal Breath Sounds, No Accessory Muscle Use, No Respiratory Distress Cardiovascular: Regular Rate, Rhythm, No Edema, No Gallop, No JVD, Normal Peripheral Pulses, Systolic Murmur (2/6 with radiation into the left carotid) Gastrointestinal: Normal Bowel Sounds, No Organomegaly, No Pulsatile Mass, Soft , Other (Right mid and right upper quadrant pain to palpation without rebound or guarding. Rojas sign is positive) Extremity: Normal Capillary Refill, Normal Inspection, Normal Range of Motion, Non Tender, No Calf Tenderness, No Pedal Edema Neurologic/Psychiatric: Alert, Oriented x3, No Motor/Sensory Deficits, Normal Mood/Affect Skin: Normal Color, Warm/Dry Results Results/Procedures Labs Laboratory Tests 12/13/17 01:28 Patient resulted labs reviewed. Assessment/Plan Admission Diagnosis Coronary artery disease, history of CABG 4 done in 2000 using MEYER to LAD, vein graft to the right coronary artery, vein graft to the diagonal artery, vein graft to the obtuse marginal branch. Cardiac catheterization was done in April 2012 showing patent bypass graft and the 3 stents to the right coronary artery were patent with excellent flow. In 2010, patient had 3.038 mm Ion stent 3.538 mm Ion stent and 3.528 mm Ion stent to the right coronary artery. History of Veriflex stent to the OM1 and 2010 and intra-aortic balloon pump due to slow flow. Admitted on March 09, 2016 with non-ST elevation myocardial infarction, had cardiac catheterization showed total occlusion of the diagonal artery was successful angioplasty to the vein graft to the diagonal artery then deployment of a focal stent in the [place] diagonal artery through the vein graft using 2.5 x 8 mm Promus Premier expanded to 2.75 with excellent results. Most recent cardiac catheterization done June 25, 2017 revealed severe small vessel disease at the distal diagonal artery and right coronary artery and LAD, Patent MEYER to LAD, patent vein graft to diagonal artery, the diagonal artery is known to have 2 stents, beyond the stent it is a hairline artery with small vessel disease. Patent vein graft to obtuse marginal branch with good flow distally. Known occluded vein graft to the right coronary artery, the [place] right coronary artery has multiple stents from the proximal to distal portion that are patent, beyond the bifurcation there is small vessel disease in the PDA. Last dose of aspirin and Plavix for last night, he may hold these medications in preparation for surgery History of Congestive heart failure, resolved, last echocardiogram was done in June 2017 showing ejection fraction 60-65 percent, mild aortic valve stenosis, PA pressure 25-30 mmHg. Continue to monitor Hypertension, continue to monitor blood pressure. Hyperlipidemia, has been on Lipitor 20 mg daily, hold for now Carotid stenosis, history of right CEA, carotid ultrasound was done in May 2017 showing mild bilateral disease nonobstructive disease Hypothyroidism, followed and managed by primary care physician. History of pulmonary hypertension, last echocardiogram showed normal PA pressure. Continue to monitor. Acute cholecystitis highly likely symptoms currently improved. Discussed with the patient that it is going to be best if possible to hold off surgery for a minimum of 5 days and for now we'll continue nothing by mouth status deferring advancing to clear liquids to Dr. Marshall. Discussed significant increase for bleeding risk if taken to surgery prior to 5 days at minimum. We'll continue home Synthroid dose and at bedtime Lipitor holding other medications. We'll repeat CBC and CMP in the morning. Leukocytosis more likely due to stress reaction and underlying infection. If the CBC is down significantly tomorrow we'll likely discontinue Rocephin Admission Status: Inpatient Order (span 2 midnights) Reason for Inpatient Admission: See admission diagnosis Clinical Quality Measures AMI/AHF: ASA po Prior to arrival: Yes (baby aspirin daily) DVT/VTE Risk/Contraindication: Risk Factor Score Per Nursin RFS Level Per Nursing on Admit: 4+=Very High AVA REED MD Dec 13, 2017 09:54
--- NOTE | 2017-12-13 10:00 | Diagnostic Imaging Report ---
PROCEDURE: US Gallbladder. TECHNIQUE: Multiple real-time grayscale images were obtained over the right upper quadrant in various projections. INDICATION: Abdominal pain. FINDINGS: The liver is normal in size without focal lesions. There is no obvious intrahepatic biliary ductal dilatation. The common bile duct is, however, obscured by bowel gas. There are multiple stones seen lodged in the neck of the gallbladder with some sludge. Gallbladder wall measures 2.4 mm. There is no pericholecystic fluid. Pancreas not well-seen due to bowel gas. Right kidney is normal. There is no ascites. The aorta and IVC are not well seen. IMPRESSION: Cholelithiasis with what appears to be multiple stones lodged in the neck of the gallbladder with some gallbladder sludge. Possibly of early acute cholecystitis cannot be excluded. Recommend clinical correlation and if warranted followup with a nuclear medicine hepatobiliary scan. Dictated by: Dictated on workstation # [id number]
[2017-12-13 11:29] VITALS: BP 99/52
[2017-12-13] MEDS ORDERED: ceFAZolin 2 GM IV Premixed 50 ML IV ONE (11:30)
--- NOTE | 2017-12-13 11:49 | Consultation ---
History of Present Illness History of Present Illness Patient Consulted On(kiana/time) 12/13/17 11:44 Date Seen by Provider: Dec 13, 2017 Time Seen by Provider: 11:44 Reason for Visit: abdominal pain History of Present Illness consult requested by Dr. Reed for acute cholecystitis. Patient is an 82 year old male who began having epigastric abdominal pain yesterday after eating dinner. Pain from xiphoid to umbilicus and now more around right side. Had ct scan demonstrating cholelithiasis and u/s showing stone and maybe early cholecystitis. Patient has had some episodes of pain previously but has gone away typically and not to much of a bother. Patient with moderate to severe pain when came in. Patient with elevated wbc. Patient on Plavix typically, but states that he has not taken last 4 days. He takes his plavix at night and hadn't taken his evening pills last 3 days. Denies fever sweats chills shortness of breath or chest pain. Allergies and Home Medications Allergies Coded Allergies: Shellfish (Verified Allergy, Unknown, 03/09/16) ranitidine HCl (Verified Adverse Reaction, Mild, 06/25/11) Uncoded Allergies: bee stings (Allergy, Unknown, 03/09/16) Home Medications Aspirin 81 Mg Tablet.dr, 81 MG PO DAILY, (Reported) Carvedilol 6.25 Mg Tablet, 6.25 MG PO BID, (Reported) Clopidogrel Bisulfate 75 Mg Tablet, 75 MG PO DAILY, (Reported) Fish Oil/Dha/Epa 1 Each Capsule, 1,200 MG PO BID, (Reported) L.acid/L.casei/B.bif/B.mika/Fos 1 Each Capsule, 1 CAP PO DAILY, (Reported) Levothyroxine Sodium 112 Mcg Tablet, 112 MCG PO DAILY, (Reported) Lisinopril 5 Mg Tablet, 5 MG PO DAILY, (Reported) Multivits-Minerals/FA/Lycopene 1 Each Tablet, 1 TAB PO DAILY, (Reported) Niacin 500 Mg Capsule.er, 500 MG PO BID, (Reported) Pantoprazole Sodium 40 Mg Tablet.dr, 40 MG PO DAILY, (Reported) Ubidecarenone 200 Mg Capsule, 200 MG PO DAILY, (Reported) Patient Home Medication List Home Medication List Reviewed: Yes Past Pbbamri-Iwvfsz-Ysscxp Hx Patient Social History Alcohol Use: Denies Use Recreational Drug Use: No Smoking Status: Former Smoker Former Smoker, Quit: Jun 25, 1984 Type Used: Cigarettes Recent Foreign Travel: No Contact w/Someone Who Travel: No Recent Infectious Disease Expo: No Recent Hopitalizations: No Physical Abuse Screen: No Sexual Abuse: No Immunizations Up To Date Tetanus Booster (TDap): Unknown Date of Pneumonia Vaccine: Apr 29, 2015 Date of Influenza Vaccine: Apr 13, 2017 Seasonal Allergies Seasonal Allergies: No Surgeries History of Surgeries: Yes Surgeries: CABG, Coronary Stent, Orthopedic, Vascular Surgery Respiratory History of Respiratory Disorde: No Cardiovascular History of Cardiac Disorders: Yes (cabg, 3 stents) Cardiac Disorders: Coronary Artery Disease, High Cholesterol, Hypertension Neurological History of Neurological Disord: No Reproductive System Hx Reproductive Disorders: No Sexually Transmitted Disease: No Genitourinary History of Genitourinary Disor: No Gastrointestinal History of Gastrointestinal Di: Yes Gastrointestinal Disorders: Gastroesophageal Reflux, Chronic Constipation, Polyps Musculoskeletal History of Musculoskeletal Dis: No Endocrine History of Endocrine Disorders: Yes HEENT History of HEENT Disorders: No Loss of Vision: Denies Hearing Impairment: Denies Cancer History of Cancer: No Psychosocial History of Psychiatric Problem: No Integumentary History of Skin or Integumenta: No Blood Transfusions History of Blood Disorders: No Family Medical History Significant Family History: Heart Disease Family Medial History: FH: lung cancer Review of Systems-General Constitutional: no symptoms reported EENTM: no symptoms reported Respiratory: no symptoms reported Cardiovascular: no symptoms reported Gastrointestinal: RUQ, abdominal pain (RUQ), nausea Genitourinary: no symptoms reported Musculoskeletal: no symptoms reported Skin: no symptoms reported Psychiatric/Neurological: No Symptoms Reported Physical Exam-General Problems Physical Exam Vital Signs Vital Signs - First Documented 12/13/17 01:09 Temp 97.1 Pulse 65 Resp 17 B/P (MAP) 145/81 (102) Pulse Ox 94 O2 Delivery Room Air Capillary Refill : Less Than 3 Seconds General Appearance: no apparent distress HEENT: PERRL/EOMI, normal ENT inspection Neck: non-tender, supple Respiratory: no respiratory distress, no accessory muscle use Cardiovascular: regular rate, rhythm Gastrointestinal: soft, tenderness (right upper quadrant) Rectal: deferred Back: no CVA tenderness Extremities: normal inspection Neurologic/Psychiatric: alert, normal mood/affect, oriented x 3 Skin: normal color, warm/dry Lymphatic: no adenopathy Data Review Labs Laboratory Tests 12/13/17 01:28: White Blood Count 13.3H, Red Blood Count 5.20, Hemoglobin 16.1, Hematocrit 46, Mean Corpuscular Volume 88, Mean Corpuscular Hemoglobin 31, Mean Corpuscular Hemoglobin Concent 35, Red Cell Distribution Width 13.6, Platelet Count 160, Mean Platelet Volume 11.6H, Neutrophils (%) (Auto) 81H, Lymphocytes (%) (Auto) 8L, Monocytes (%) (Auto) 10, Eosinophils (%) (Auto) 1, Basophils (%) (Auto) 0, Neutrophils # (Auto) 10.8H, Lymphocytes # (Auto) 1.1, Monocytes # (Auto) 1.3H, Eosinophils # (Auto) 0.1, Basophils # (Auto) 0.0, Prothrombin Time 14.0, INR Comment 1.1, Activated Partial Thromboplast Time 29, D-Dimer 0.79H, Sodium Level 140, Potassium Level 4.4, Chloride Level 107, Carbon Dioxide Level 22, Anion Gap 11, Blood Urea Nitrogen 19H, Creatinine 1.26, Estimat Glomerular Filtration Rate 55, BUN/Creatinine Ratio 15, Glucose Level 153H, Calcium Level 9.7, Magnesium Level 1.8, Total Bilirubin 1.1H, Aspartate Amino Transf (AST/SGOT ) 18, Alanine Aminotransferase (ALT/SGPT) 22, Alkaline Phosphatase 78, Myoglobin 36.8, Troponin I < 0.30, Total Protein 7.0, Albumin 3.9, Lipase 12 Assessment/Plan Assessment/Plan Assessment/Plan right upper quadrant abdominal pain symptomatic cholelithiasis early cholecystitis cardiac history on plavix-patient reports not taking plavix last 4 days discussed risks and benefits of laparoscopic cholecystectomy intraoperative cholangiogram possible open all other indicated procedures wishes to proceed. will give platelets prior to surgery npo iv hydration discussed with Dr. Cid who is in agreement with plan Clinical Quality Measures AMI/AHF: ASA po Prior to arrival: Yes (baby aspirin daily) DVT/VTE Risk/Contraindication: Risk Factor Score Per Nursin RFS Level Per Nursing on Admit: 4+=Very High MARIBELL DACOSTA DO Dec 13, 2017 11:49
[2017-12-13] MEDS ORDERED: ONDANSETRON 4 MG/2 ML (SDV) Z0FRAN ONE (15:11)
[2017-12-13] MEDS ORDERED: LIDOCAINE PF 2% 5 ML (XYLOCAINE) VIAL ONE (15:11)
[2017-12-13] MEDS ORDERED: SEVOFLURANE (ULTANE) 15 ML INHAL SOLN ONE ×10 (15:11→18:07)
[2017-12-13] MEDS ORDERED: DEXAMETHASONE 10 MG/ML (DECADRON) 1 ML VIAL ONE (15:11)
[2017-12-13] MEDS ORDERED: proPOfol 200 MG/20 ML (DIPRIVAN) VIAL IV ONE (15:11)
[2017-12-13] MEDS ORDERED: fentaNYL INJECTION 100 MCG/2 ML AMP ONE ×2 (15:12→16:48)
[2017-12-13] MEDS ORDERED: LIDOCAINE 1% INJ 20 ML 20 ML VIAL ONE (15:23)
[2017-12-13] MEDS ORDERED: BUPIVACAINE 0.5% 30 ML (SENSORCAINE) VIAL ONE (15:23)
[2017-12-13] MEDS ORDERED: GLYCOPYRROLATE 0.2 MG/ML (ROBINUL) 2 ML VIAL ONE (15:32)
[2017-12-13] MEDS ORDERED: NEOSTIGMINE 1 MG/ML 5 ML SYRINGE ONE (15:32)
[2017-12-13] MEDS: LACTATED RINGERS 1,000 ML IV PRN ×2 (15:48→17:07)
[2017-12-13 16:00] VITALS: BP 99/55
[2017-12-13] MEDS ORDERED: ROCURONIUM 10 MG/ML 5 ML SYRINGE IV ONE (16:50)
[2017-12-13] MEDS ORDERED: ESMOLOL 100 MG/10 ML (BREVIBLOC) VIAL ONE (16:50)
[2017-12-13] MEDS ORDERED: LABETALOL HCL 20 MG/4 ML VIAL ONE (17:11)
--- NOTE | 2017-12-13 17:37 | Diagnostic Imaging Report ---
INDICATION: Intraoperative cholangiogram performed by Dr. Marshall. FINDINGS: Fluoroscopic images with real-time technique show good opacification of the common bile duct. There is free flow into the duodenum without filling defects or stricture. Reflux into the proximal pancreatic duct appears normal. IMPRESSION: Normal intraoperative cholangiogram. Dictated by: Dictated on workstation # [id number]
--- NOTE | 2017-12-13 18:10 | Progress Note-Post Operative ---
Post-Operative Progess Note Surgeon (s)/Commercial Construction Superintendent (s) Surgeon MARIBELL DACOSTA DO Commercial Construction Superintendent: NA Pre-Operative Diagnosis CHOLELITHIASIS, CHOLECYSTITIS Post-Operative Diagnosis SAME Procedure & Operative Findings Date of Procedure 12/13/17 Procedure Performed/Findings LAP HOLLY C IOC Anesthesia Type GENERAL Estimated Blood Loss Estimated blood loss (mL): 50mL Specimens/Packing Specimens Removed gallbladder Packing: surgicel MARIBELL DACOSTA DO Dec 13, 2017 18:10
[2017-12-13] MEDS: fentaNYL INJECTION 100 MCG/2 ML AMP IVP PRN ×2 (18:41→18:46)
[2017-12-13] MEDS ORDERED: ONDANSETRON 4 MG/2 ML (SDV) Z0FRAN IVP PRN (18:45)
[2017-12-13] MEDS ORDERED: MEPERIDINE (DEMEROL) INJ 50 MG/ML IVP PRN (18:45)
[2017-12-13 20:00] VITALS: BP 117/62
[2017-12-13] MEDS: fentaNYL INJECTION 100 MCG/2 ML AMP IV PRN (20:31)
[2017-12-13] MEDS: ATORVASTATIN 20 MG (LIPITOR) TABLET PO SCH (21:09)
[2017-12-14] VITALS (7 sets, daily range): BP systolic 84–119; BP diastolic 51–76
[2017-12-14] MEDS: NS IV 1000 ML 1,000 ML IV SCH ×3 (02:47→16:22)
[2017-12-14] MEDS: cefTRIAXone 1 GM/NS 50 ML IVPB IV SCH ×2 (03:48)
[2017-12-14] MEDS: fentaNYL INJECTION 100 MCG/2 ML AMP IV PRN (06:33)
[2017-12-14] MEDS: LEVOTHYROXINE 112 MCG (LEVOTHROID) TAB PO SCH (06:33)
[2017-12-14 07:28] LABS: CHOLESTEROL 97 MG/DL (< 200); HDL CHOLESTEROL 47 MG/DL (40-60); TRIGLYCERIDES 56 MG/DL (<150); VLDL CHOLESTEROL 11 MG/DL (5-40)
[2017-12-14] MEDS: lisINopril 10 MG (PRINIVIL) TABLET PO SCH (08:51)
--- NOTE | 2017-12-14 09:01 | Cardiology Progress Note ---
Subjective Date Seen by Provider: Dec 14, 2017 Time Seen by Provider: 09:00 Subjective/Events-last exam Patient is sitting in a chair, feeling better, denied any active chest pain, mild shortness of breath. Review of Systems General: No Chills, No Night Sweats, No Fatigue, No Malaise, No Appetite, No Other HEENT: No Head Aches, No Visual Changes, No Eye Pain, No Ear Pain, No Dysphasia , No Sinus Congestion, No Post Nasal Drip, No Sore Throat, No Other Pulmonary: No Dyspnea, No Cough, No Pleuritic Chest Pain, No Other Cardiovascular: No: Chest Pain, Palpitations, Orthopnea, Paroxysmal Noc. Dyspnea, Edema, Lt Headedness, Other Objective-Cardiology Exam Last Set of Vital Signs Vital Signs 12/14/17 12/14/17 04:00 08:08 Temp 98.3 Pulse 82 Resp 20 B/P (MAP) 101/53 (69) Pulse Ox 95 O2 Delivery Nasal Cannula O2 Flow Rate 4.00 Capillary Refill : Less Than 3 SecondsLess Than 3 Seconds I&O Intake and Output 12/14/17 00:00 Intake Total 1100 ml Output Total 625 ml Balance 475 ml Intake Oral 0 ml IV Total 1100 ml Output Urine Total 625 ml # Bowel Movements 1 Daily Weight Change No General: Alert, Oriented X3, Cooperative HEENT: Atraumatic, PERRLA Neck: Supple, No JVD, No Thyromegaly Lungs: Clear to Auscultation, Normal Air Movement Heart: Regular Rate, Normal S1, Normal S2, No Murmurs Abdomen: Soft, No Hepatosplenomegaly, No Masses, Other (Tenderness at the surgical site) Extremities: No Clubbing, No Cyanosis, No Edema, Normal Pulses, No Tenderness/ Swelling Skin: No Rashes, No Breakdown, No Significant Lesion Neuro: Normal Gait, Normal Speech, Strength at 5/5 X4 Ext, Normal Tone, Sensation Intact Psych/Mental Status: Mental Status NL, Mood NL Results Lab Laboratory Tests Test 12/14/17 05:41 12/14/17 05:42 12/14/17 05:52 Range/Units Glucometer 147 H 159 H 70-110 MG/DL Triglycerides Level 56 <150 MG/DL Cholesterol Level 97 < 200 MG/DL LDL Cholesterol Direct 38 1-129 MG/DL VLDL Cholesterol 11 5-40 MG/DL HDL Cholesterol 47 40-60 MG/DL A/P-Cardiology Admission Diagnosis Acute cholecystitis Coronary artery disease Hypertension Hyperlipidemia Assessment/Plan Acute cholecystitis, status post cholecystectomy done on December 13, 2017, recovering well Coronary artery disease, history of CABG 4 done in 2000 using MEYER to LAD, vein graft to the right coronary artery, vein graft to the diagonal artery, vein graft to the obtuse marginal branch. Cardiac catheterization was done in April 2012 showing patent bypass graft and the 3 stents to the right coronary artery were patent with excellent flow. In 2010, patient had 3.038 mm Ion stent 3.538 mm Ion stent and 3.528 mm Ion stent to the right coronary artery. History of Veriflex stent to the OM1 and 2010 and intra-aortic balloon pump due to slow flow. Admitted on March 09, 2016 with non-ST elevation myocardial infarction, had cardiac catheterization showed total occlusion of the diagonal artery was successful angioplasty to the vein graft to the diagonal artery then deployment of a focal stent in the [place] diagonal artery through the vein graft using 2.5 x 8 mm Promus Premier expanded to 2.75 with excellent results. Most recent cardiac catheterization done June 25, 2017 revealed severe small vessel disease at the distal diagonal artery and right coronary artery and LAD, Patent MEYER to LAD, patent vein graft to diagonal artery, the diagonal artery is known to have 2 stents, beyond the stent it is a hairline artery with small vessel disease. Patent vein graft to obtuse marginal branch with good flow distally. Known occluded vein graft to the right coronary artery, the [place] right coronary artery has multiple stents from the proximal to distal portion that are patent, beyond the bifurcation there is small vessel disease in the PDA. No active chest pain. Continue to monitor History of Congestive heart failure, resolved, last echocardiogram was done in June 2017 showing ejection fraction 60-65 percent, mild aortic valve stenosis, PA pressure 25-30 mmHg. Continue to monitor Hypertension, continue to monitor blood pressure. Hyperlipidemia, has been on Lipitor 20 mg daily, continue to hold for now Carotid stenosis, history of right CEA, carotid ultrasound was done in May 2017 showing mild bilateral disease nonobstructive disease Hypothyroidism, followed and managed by primary care physician. History of pulmonary hypertension, last echocardiogram showed normal PA pressure. Continue to monitor. Clinical Quality Measures AMI/AHF: ASA po Prior to arrival: Yes (baby aspirin daily) DVT/VTE Risk/Contraindication: Risk Factor Score Per Nursin RFS Level Per Nursing on Admit: 4+=Very High NICOLASA SANDHU MD Dec 14, 2017 09:01
[2017-12-14 10:22] LABS: BASOPHILS % (AUTO) 0 % (0-10); EOSINOPHILS % (AUTO) 0 % (0-10); HEMATOCRIT 41 % (40-54); HEMOGLOBIN 13.8 G/DL (13.3-17.7); LYMPHOCYTES # (AUTO) 0.5 X 10^3 (1.0-4.0); LYMPHOCYTES % (AUTO) 4 % (12-44); MEAN CORPUSCULAR HEMOGLOBIN 30 PG (25-34); MEAN CORPUSCULAR HGB CONC 33 G/DL (32-36); MEAN CORPUSCULAR VOLUME 90 FL (80-99); MEAN PLATELET VOLUME 12.2 FL (7.4-10.4); MONOCYTES # (AUTO) 1.6 X 10^3 (0.0-1.0); MONOCYTES % (AUTO) 12 % (0-12); NEUTROPHILS # (AUTO) 11.1 X 10^3 (1.8-7.8); NEUTROPHILS % (AUTO) 84 % (42-75); PLATELET COUNT 146 10^3/uL (130-400); RED BLOOD COUNT 4.59 10^6/uL (4.35-5.85); RED CELL DISTRIBUTION WIDTH 14.7 % (10.0-14.5); WHITE BLOOD COUNT 13.3 10^3/uL (4.3-11.0)
[2017-12-14] MEDS ORDERED: ACETAMINOPHEN 500 MG TAB (TYLENOL) ONE (10:24)
[2017-12-14] MEDS: ACETAMINOPHEN 500 MG TAB (TYLENOL) PO PRN ×2 (10:26→20:27)
[2017-12-14 10:35] LABS: ALANINE AMINOTRANSFERASE 53 U/L (0-55); ALKALINE PHOSPHATASE 48 U/L (40-136); BILIRUBIN,TOTAL 1.4 MG/DL (0.1-1.0); BUN/CREATININE RATIO 15; CALCIUM 8.3 MG/DL (8.5-10.1); CARBON DIOXIDE 19 MMOL/L (21-32); CHLORIDE 109 MMOL/L (98-107); CREATININE SERUM 1.04 MG/DL (0.60-1.30); GFR ESTIMATED > 60; GLUCOSE 153 MG/DL (70-105); POTASSIUM 4.1 MMOL/L (3.6-5.0); SODIUM 140 MMOL/L (135-145); TOTAL PROTEIN 5.9 GM/DL (6.4-8.2)
--- NOTE | 2017-12-14 10:36 | Anesthesia-General Post-Op ---
General Patient Condition Mental Status/LOC: Same as Preop Cardiovascular: Satisfactory Nausea/Vomiting: Absent Respiratory: Satisfactory (Requiring 4LNC to maintain sat > 90) Pain: Controlled Complications: Absent Post Op Complications Complications O2 Saturation being addressed by surgeon Follow Up Care/Instructions Patient Instructions Will follow up tomorrow. Will be available today for any questions. Anesthesia/Patient Condition Patient Condition Patient is doing well, no complaints, no apparent adverse anesthesia problems. MONICA PAL CRNA Dec 14, 2017 10:36
--- NOTE | 2017-12-14 11:28 | Progress Note ---
Subjective Date Seen by Provider: Dec 14, 2017 Time Seen by Provider: 11:23 Subjective/Events-last exam pain controlled. feeling better. some shortness of breath. no chest pain. denies n/v fever sweats chills shortness of breath or chest pain bilirubin slight increase Objective Exam Vital Signs Date Time Temp Pulse Resp B/P (MAP) Pulse Ox O2 Delivery O2 Flow Rate FiO2 12/14/17 08:08 Nasal Cannula 4.00 12/14/17 08:00 96.7 89 18 119/76 (90) Nasal Cannula 4.00 12/14/17 07:01 Nasal Cannula 3.00 12/14/17 04:00 98.3 82 20 101/53 (69) 95 Nasal Cannula 4.00 12/14/17 00:00 98.2 76 16 99/56 (70) 92 Nasal Cannula 4.00 12/13/17 21:38 Nasal Cannula 4.00 12/13/17 20:00 98.7 73 18 117/62 (80) 91 Nasal Cannula 4.00 12/13/17 19:30 91 Nasal Cannula 4.00 12/13/17 16:00 99.1 90 16 99/55 (70) 93 Room Air 12/13/17 11:29 99.9 90 20 99/52 (68) 93 Room Air I & O 12/14/17 07:00 Intake Total 2100 ml Output Total 875 ml Balance 1225 ml Capillary Refill : Less Than 3 SecondsLess Than 3 Seconds General Appearance: No Apparent Distress, WD/WN HEENT: PERRL/EOMI, TMs Normal, Normal ENT Inspection, Pharynx Normal Neck: Full Range of Motion, Normal Inspection, Non Tender, Supple Respiratory: Chest Non Tender, No Accessory Muscle Use, No Respiratory Distress Cardiovascular: Regular Rate, Rhythm Gastrointestinal: soft, tenderness (incisional tenderness, no signs of infection) Extremity: Normal Capillary Refill, Normal Inspection, Normal Range of Motion, Non Tender, No Calf Tenderness, No Pedal Edema Neurologic/Psychiatric: Alert, Oriented x3, No Motor/Sensory Deficits, Normal Mood/Affect, secretary II-XII Norm as Tested Skin: Normal Color, Warm/Dry Lymphatic: No Adenopathy Results Lab Laboratory Tests 12/14/17 05:41: Glucometer 147H 12/14/17 05:42: White Blood Count 13.3H, Red Blood Count 4.59, Hemoglobin 13.8, Hematocrit 41, Mean Corpuscular Volume 90, Mean Corpuscular Hemoglobin 30, Mean Corpuscular Hemoglobin Concent 33, Red Cell Distribution Width 14.7H, Platelet Count 146, Mean Platelet Volume 12.2H, Neutrophils (%) (Auto) 84H, Lymphocytes (%) (Auto) 4L, Monocytes (%) (Auto) 12, Eosinophils (%) (Auto) 0, Basophils (%) (Auto) 0, Neutrophils # (Auto) 11.1H, Lymphocytes # (Auto) 0.5L, Monocytes # (Auto) 1.6H, Eosinophils # (Auto) 0.0, Basophils # (Auto) 0.0, Sodium Level 140, Potassium Level 4.1, Chloride Level 109H, Carbon Dioxide Level 19L, Anion Gap 12, Blood Urea Nitrogen 16, Creatinine 1.04, Estimat Glomerular Filtration Rate > 60, BUN/ Creatinine Ratio 15, Glucose Level 153H, Calcium Level 8.3L, Total Bilirubin 1.4H, Direct Bilirubin 0.6H, Aspartate Amino Transf (AST/SGOT) 65H, Alanine Aminotransferase (ALT/SGPT) 53, Alkaline Phosphatase 48, Total Protein 5.9L, Albumin 3.0L, Triglycerides Level 56, Cholesterol Level 97, LDL Cholesterol Direct 38, VLDL Cholesterol 11, HDL Cholesterol 47 12/14/17 05:52: Glucometer 159H Assessment/Plan Assessment/Plan Assessment/Plan right upper quadrant abdominal pain symptomatic cholelithiasis cholecystitis cardiac history on plavix-patient reports not taking plavix last 4 days s/p laparoscopic cholecystectomy intraoperative cholangiogram shortness of breath on rocephin IV pain control incentive spirometer-encouraged repeat labs in am follow bilirubin hold plavix/asa chest x ray Clinical Quality Measures AMI/AHF: ASA po Prior to arrival: Yes (baby aspirin daily) DVT/VTE Risk/Contraindication: Risk Factor Score Per Nursin RFS Level Per Nursing on Admit: 4+=Very High MARIBELL DACOSTA DO Dec 14, 2017 11:28
--- NOTE | 2017-12-14 11:46 | Progress Note-Hospitalist ---
Subjective HPI/CC On Admission Date Seen by Provider: Dec 14, 2017 Time Seen by Provider: 11:00 Mr. Ashraf is an 82-year-old white male who reports he was in his usual state of health until approximately 5 o'clock p.m. the evening of December 12. He just finished mashed potatoes and roast beef and noted the onset of generalized abdominal pain was worse initially in the periumbilical area but then radiated upward. It was associated with nausea and radiated the precordium of his chest. He denied chills fever or radiation of pain to the back diarrhea melena or bright red blood per rectum. He has a history of coronary artery disease last intervention with stent placement in 2010. He stated it because he had been dizzy he did not take any of his medication on Friday or but did take aspirin and Plavix Friday. He had no previous symptoms like this. He presented emergency room as d-dimer was minimally elevated at 0.[address] angiogram of the chest and abdomen had no evidence for blood clots but did have evidence for gallstones with some paracolic cystic fluid consistent with acute cholecystitis. He's been nothing by mouth and reports some mild abdominal discomfort this morning but is no longer having any nausea. He reports that he is not currently hungry. Subjective/Events-last exam Upon my arrival this morning nursing staff told me that they have been unable to wean patient off of oxygen. He is requiring 4 L per nasal cannula to maintain saturations in the low 90 range. He denies shortness of breath but is developed a cough productive of brown sputum production which is new. He denies chills or fever and reports expected amount of trocar incision tenderness voicing no other complaints. He denies chest pain or shortness of breath at rest. Objective Exam Vital Signs Vital Signs Date Time Temp Pulse Resp B/P (MAP) Pulse Ox O2 Delivery O2 Flow Rate FiO2 12/14/17 08:08 Nasal Cannula 4.00 12/14/17 08:00 96.7 89 18 119/76 (90) 12/14/17 04:00 95 Capillary Refill : Less Than 3 SecondsLess Than 3 Seconds General Appearance: No Apparent Distress Respiratory: No Accessory Muscle Use, No Respiratory Distress, Rales (Over the right lower lobe posteriorly and questionable right middle lobe pulmonic areas. Elsewhere chest is clear no wheezing is noted.) Cardiovascular: Regular Rate, Rhythm, No Edema, No Gallop, No JVD, Normal Peripheral Pulses, Other (Soft 1 to 2/6 systolic ejection murmur heard best at the second right intercostal space unchanged) Gastrointestinal: Normal Bowel Sounds, No Organomegaly, No Pulsatile Mass, Soft , Other (Trocar sites look good no evidence for significant bruising or hematoma.) Skin: Other (Patient has a flushed appearance no evidence for pallor) Results/Procedures Lab Laboratory Tests 12/14/17 05:42 Patient resulted labs reviewed. Assessment/Plan Assessment and Plan Assess & Plan/Chief Complaint A/P 1. Postop day 1 status post laparoscopic cholecystectomy. From a surgical standpoint he appears to be doing well without evidence for bleeding. 2. 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 Discussed the fact that this would delay discharge likely by several days. With no history of lung disease and a admission chest CT only revealing rib fracture from a known old injury this will be treated as a community-acquired pneumonia. There is no evidence for sepsis at this time. Clinical Quality Measures AMI/AHF: ASA po Prior to arrival: Yes (baby aspirin daily) DVT/VTE Risk/Contraindication: Risk Factor Score Per Nursin RFS Level Per Nursing on Admit: 4+=Very High AVA ORTIZ MD Dec 14, 2017 11:46
--- NOTE | 2017-12-14 12:07 | Diagnostic Imaging Report ---
EXAMINATION: PA and lateral chest obtained at 1148. INDICATION: Postop laparoscopic cholecystectomy The appearance of the chest has worsened since the prior study of 12/13/17 as bibasal pneumonia/atelectasis and small bilateral pleural effusions have developed. There is greater involvement on the right. The central pulmonary vasculature also seems more prominent than on the prior exam and there may be an element of mild pulmonary vascular congestion present. The heart is enlarged but stable. The sternotomy wires and surgical clips noted previously are again evident and no different. The orthopedic plate and screw fixation device overlying the right clavicle seen on the prior study is also unchanged. The mediastinum is not widened. The osseous structures are intact. IMPRESSION: The appearance of the chest has worsened since the prior study as bibasal pneumonia/atelectasis and small bilateral pleural effusions have developed. There may also be mild pulmonary congestion present. A followup study would be recommended for continued evaluation. Dictated by: Dictated on workstation # [id number]
[2017-12-14] MEDS ORDERED: RT-ALBUTEROL/IPRATROPIUM 3 ML (DUONEB) VIAL INH PRN (15:45)
[2017-12-14] MEDS: RT-ALBUTEROL/IPRATROPIUM 3 ML (DUONEB) VIAL INH SCH ×2 (18:34→22:17)
[2017-12-14] MEDS: ATORVASTATIN 20 MG (LIPITOR) TABLET PO SCH (20:20)
[2017-12-15] MEDS: RT-ALBUTEROL/IPRATROPIUM 3 ML (DUONEB) VIAL INH SCH ×3 (01:24→10:19)
[2017-12-15] MEDS: NS IV 1000 ML 1,000 ML IV SCH (02:28)
[2017-12-15] MEDS: cefTRIAXone 1 GM/NS 50 ML IVPB IV SCH ×2 (03:44)
[2017-12-15 05:00] VITALS: BP 100/61
[2017-12-15 05:57] LABS: BASOPHILS % (AUTO) 0 % (0-10); EOSINOPHILS % (AUTO) 0 % (0-10); HEMATOCRIT 39 % (40-54); HEMOGLOBIN 13.1 G/DL (13.3-17.7); LYMPHOCYTES # (AUTO) 0.8 X 10^3 (1.0-4.0); LYMPHOCYTES % (AUTO) 10 % (12-44); MEAN CORPUSCULAR HEMOGLOBIN 31 PG (25-34); MEAN CORPUSCULAR HGB CONC 34 G/DL (32-36); MEAN CORPUSCULAR VOLUME 90 FL (80-99); MEAN PLATELET VOLUME 11.4 FL (7.4-10.4); MONOCYTES # (AUTO) 0.9 X 10^3 (0.0-1.0); MONOCYTES % (AUTO) 10 % (0-12); NEUTROPHILS # (AUTO) 7.1 X 10^3 (1.8-7.8); NEUTROPHILS % (AUTO) 80 % (42-75); PLATELET COUNT 116 10^3/uL (130-400); RED BLOOD COUNT 4.29 10^6/uL (4.35-5.85); RED CELL DISTRIBUTION WIDTH 14.6 % (10.0-14.5); WHITE BLOOD COUNT 8.8 10^3/uL (4.3-11.0)
[2017-12-15] MEDS: LEVOTHYROXINE 112 MCG (LEVOTHROID) TAB PO SCH (06:16)
[2017-12-15] MEDS: ACETAMINOPHEN 500 MG TAB (TYLENOL) PO PRN (06:17)
[2017-12-15 06:21] LABS: ALANINE AMINOTRANSFERASE 54 U/L (0-55); ALBUMIN 2.7 GM/DL (3.2-4.5); ALKALINE PHOSPHATASE 48 U/L (40-136); BILIRUBIN,DIRECT 0.5 MG/DL (0.0-0.3); BUN/CREATININE RATIO 18; CALCIUM 8.2 MG/DL (8.5-10.1); CARBON DIOXIDE 22 MMOL/L (21-32); CHLORIDE 109 MMOL/L (98-107); GFR ESTIMATED > 60; GLUCOSE 99 MG/DL (70-105); POTASSIUM 3.9 MMOL/L (3.6-5.0); SODIUM 139 MMOL/L (135-145); TOTAL PROTEIN 5.5 GM/DL (6.4-8.2)
[2017-12-15 08:00] VITALS: BP 88/55
[2017-12-15] MEDS: lisINopril 10 MG (PRINIVIL) TABLET PO SCH (09:00)
--- NOTE | 2017-12-15 09:12 | Discharge Summary ---
Diagnosis/Chief Complaint Date of Admission Dec 13, 2017 at 04:10 Date of Discharge Discharge Date: Dec 15, 2017 Discharge Time: 11:00 Admission Diagnosis Admission Diagnosis ACUTE CHOLECYSTITIS S/P CHOLECYSTECTOMY WITH ERCP PNEUMONIA HYPERBILIRUBINEMIA ELEVATED LIVER ENZYMES HYPOTENSION - WITH CHRONIC HYPERTENSION HYPOXEMIA CORONARY ARTERY DISEASE HYPOTHYROIDISM ESOPHAGEAL REFLUX HYPERLIPIDEMIA Discharge Diagnosis ACUTE CHOLECYSTITIS S/P CHOLECYSTECTOMY WITH ERCP PNEUMONIA HYPERBILIRUBINEMIA ELEVATED LIVER ENZYMES HYPOTENSION - WITH CHRONIC HYPERTENSION HYPOXEMIA CORONARY ARTERY DISEASE HYPOTHYROIDISM ESOPHAGEAL REFLUX HYPERLIPIDEMIA Reason Hospital Visit Mr. Ashraf is an 82-year-old white male who reports he was in his usual state of health until approximately 5 o'clock p.m. the evening of December 12. He just finished mashed potatoes and roast beef and noted the onset of generalized abdominal pain was worse initially in the periumbilical area but then radiated upward. It was associated with nausea and radiated the precordium of his chest. He denied chills fever or radiation of pain to the back diarrhea melena or bright red blood per rectum. He has a history of coronary artery disease last intervention with stent placement in 2010. He stated it because he had been dizzy he did not take any of his medication on Friday or but did take aspirin and Plavix Friday. He had no previous symptoms like this. He presented emergency room as d-dimer was minimally elevated at 0.[address] angiogram of the chest and abdomen had no evidence for blood clots but did have evidence for gallstones with some paracolic cystic fluid consistent with acute cholecystitis. He's been nothing by mouth and reports some mild abdominal discomfort this morning but is no longer having any nausea. He reports that he is not currently hungry. Discharge Summary Procedures: CHOLESCYTECTOMY Consultations CARDIOLOGY SURGERY Discharge Physical Examination Allergies: Coded Allergies: Shellfish (Verified Allergy, Unknown, 03/09/16) ranitidine HCl (Verified Adverse Reaction, Mild, 06/25/11) Uncoded Allergies: bee stings (Allergy, Unknown, 03/09/16) Vitals & I&Os Vital Signs Date Time Temp Pulse Resp B/P (MAP) Pulse Ox O2 Delivery O2 Flow Rate FiO2 12/15/17 08:00 98.4 91 22 88/55 (66) 94 Nasal Cannula 4.00 12/14/17 15:39 36 General Appearance: Alert, Oriented X3, Cooperative HEENT: Atraumatic, PERRLA Respiratory: Normal Air Movement, Other (WITH CRACKLES IN LEFT BASE) Cardiovascular: Regular Rate, Normal S1, Normal S2, No Murmurs Abdominal: Soft, No Hepatosplenomegaly, No Masses, Other (Tenderness at the surgical site) Extremities: No Clubbing, No Cyanosis, No Edema, Normal Pulses, No Tenderness/ Swelling Skin: No Rashes, No Breakdown, No Significant Lesion Neuro: Normal Gait, Normal Speech, Strength at 5/5 X4 Ext, Normal Tone, Sensation Intact Psych/Mental Status: Mental Status NL, Mood NL Hospital Course ACUTE CHOLECYSTITIS - S/P CHOLECYSTECTOMY WITH ERCP AND HYPERBILIRUBINEMIA AND ELEVATED LIVER ENZYMES - LIVER ENZYMES AND ELEVATED BILIRUBIN RESOLVING - CONTINUE WITH SUPPORTIVE CARE. PNEUMONIA - PT ON ROCEPHINB - CONTINUE WITH ORAL ANTIBIOTICS AN OUTPATIENT - START ON CEFDINIR OUTPATIENT. HYPOTENSION - WITH CHRONIC HYPERTENSION - HOLD LISINOPRIL - RESTART BETA HUSSAIN THERAPY. HYPOXEMIA - IMPROVED - MONITOR SYMPTOMS - PT WEANED OFF OF OXYGEN THIS MORNING. CORONARY ARTERY DISEASE - RESTART PLAVIX AND ASPIRIN. HYPOTHYROIDISM - RESUME HOME MEDICATIONS ESOPHAGEAL REFLUX - RESUME HOME MEDICATIONS HYPERLIPIDEMIA - RESUME HOME MEDICATIONS. DISCUSSED WITH PT - HE WILL BE SEEN IN MY CLINIC IN 1 WEEK AND SURGERY IN 2 WEEKS. Pending Labs Laboratory Tests 12/15/17 05:25: Sodium Level 139, Potassium Level 3.9, Chloride Level 109, Carbon Dioxide Level 22, Anion Gap 8, Blood Urea Nitrogen 18, Creatinine 1.00, Estimat Glomerular Filtration Rate > 60, BUN/Creatinine Ratio 18, Glucose Level 99, Calcium Level 8.2, Total Bilirubin 1.0, Direct Bilirubin 0.5, Aspartate Amino Transf (AST/SGOT ) 51, Alanine Aminotransferase (ALT/SGPT) 54, Alkaline Phosphatase 48, Total Protein 5.5, Albumin 2.7 12/15/17 05:35: White Blood Count 8.8, Red Blood Count 4.29, Hemoglobin 13.1, Hematocrit 39, Mean Corpuscular Volume 90, Mean Corpuscular Hemoglobin 31, Mean Corpuscular Hemoglobin Concent 34, Red Cell Distribution Width 14.6, Platelet Count 116, Mean Platelet Volume 11.4, Neutrophils (%) (Auto) 80, Lymphocytes (%) (Auto) 10 , Monocytes (%) (Auto) 10, Eosinophils (%) (Auto) 0, Basophils (%) (Auto) 0, Neutrophils # (Auto) 7.1, Lymphocytes # (Auto) 0.8, Monocytes # (Auto) 0.9, Eosinophils # (Auto) 0.0, Basophils # (Auto) 0.0 Discharge Condition at discharge IMPROVED Instructions to patient/family Please see electronic discharge instructions given to patient. Discharge Medications Reviewed and agree with Discharge Medication list on patient's Discharge Instruction sheet Clinical Quality Measures AMI/AHF: ASA po Prior to arrival: Yes (baby aspirin daily) DVT/VTE Risk/Contraindication: Risk Factor Score Per Nursin RFS Level Per Nursing on Admit: 4+=Very High LUAN SIMS MD Dec 15, 2017 09:12
[2017-12-15] MEDS ORDERED: LACT1CAP87 PO (09:20)
[2017-12-15] MEDS ORDERED: CEFD300C3 PO (09:20)
[2017-12-15] MEDS ORDERED: CARV3.122 PO (09:20)
--- NOTE | 2017-12-15 09:20 | Diagnostic Imaging Report ---
INDICATION: Pneumonia. Comparison made with prior examination from 12/14/2017. FINDINGS: There is bibasilar atelectasis and/or pneumonitis. There are small bilateral pleural effusions. There is cardiomegaly and some venous congestion. There is no pneumothorax. The mediastinum is unremarkable. There has been previous median sternotomy and coronary bypass graft. IMPRESSION: Persistent bibasal atelectasis and/or pneumonitis and small bilateral pleural effusions. Cardiomegaly and mild venous congestion. Dictated by: Dictated on workstation # [id number]
--- NOTE | 2017-12-15 09:21 | Discharge Inst-Complex ---
PDI Med Rec & Follow Up Appt. New Medications: Carvedilol (Carvedilol) 3.125 Mg Tablet 3.125 MG PO BID, #60 TAB 3 Refills Cefdinir (Cefdinir) 300 Mg Capsule 300 MG PO BID, #14 CAP Lactobacillus Acidophilus (Acidophilus Lactobacilli) 1 Each Capsule 1 EACH PO BID, #20 CAP Continued Medications: Aspirin (Aspirin EC) 81 Mg Tablet.dr 81 MG PO DAILY, TAB Clopidogrel Bisulfate (Clopidogrel) 75 Mg Tablet 75 MG PO DAILY, TAB Fish Oil/Dha/Epa (Fish Oil 1,200 mg Fish Oil) 1 Each Capsule 1200 MG PO BID, CAP L.acid/L.casei/B.bif/B.mika/Fos (Probiotic Blend Capsule) 1 Each Capsule 1 CAP PO DAILY, CAP Levothyroxine Sodium (Levothyroxine Sodium) 112 Mcg Tablet 112 MCG PO DAILY, TAB Multivits-Minerals/FA/Lycopene (One Daily For Men Tablet) 1 Each Tablet 1 TAB PO DAILY, TAB Niacin (Niacin) 500 Mg Capsule.er 500 MG PO BID, CAP Pantoprazole Sodium (Pantoprazole Sodium) 40 Mg Tablet.dr 40 MG PO DAILY, TAB Rosuvastatin Calcium (Rosuvastatin Calcium) 5 Mg Tablet Unknown Dose PO, TAB Ubidecarenone (Co Q-10) 200 Mg Capsule 200 MG PO DAILY, CAP Discontinued Medications: Carvedilol (Carvedilol) 6.25 Mg Tablet 6.25 MG PO BID, TAB Lisinopril (Lisinopril) 5 Mg Tablet 5 MG PO DAILY, TAB Prescription: Transmitted to Pharmacy Activity, Diet and PDI Resume Normal Activity: Yes Discharge Diet: Avoid Fatty Foods, Low Fat/Low Cholesterol Diet for 24 Hours: No Alcohol, No [place] Foods, No Spicy Foods Drink 6-8 Glasses of Fluid/Day: Yes Driving Instructions: No Driving for 24 Hours Symptoms to Reoprt to : Appetite Changes, Fever Over 101 Degrees F, Pain/ Pressure in Chest, Diarrhea(Persistant), Questions/Concerns For Problems or Questions: Contact Your Physician, Go to Emergency Room Infection Signs and Symptoms: Increased Redness, Skin Itchy or Has a Rash, Temperature Above 101 F LUAN SIMS MD Dec 15, 2017 09:21
--- NOTE | 2017-12-15 09:57 | Cardiology Progress Note ---
Subjective Date Seen by Provider: Dec 15, 2017 Time Seen by Provider: 09:56 Subjective/Events-last exam patient is sitting in a chair, feeling better. Still having some abdominal distention. No bowel movement yet Review of Systems General: No Chills, No Night Sweats, No Fatigue, No Malaise, No Appetite, No Other HEENT: No Head Aches, No Visual Changes, No Eye Pain, No Ear Pain, No Dysphasia , No Sinus Congestion, No Post Nasal Drip, No Sore Throat, No Other Pulmonary: No Dyspnea, No Cough, No Pleuritic Chest Pain, No Other Cardiovascular: No: Chest Pain, Palpitations, Orthopnea, Paroxysmal Noc. Dyspnea, Edema, Lt Headedness, Other Objective-Cardiology Exam Last Set of Vital Signs Vital Signs 12/14/17 12/15/17 15:39 08:00 Temp 98.4 Pulse 91 Resp 22 B/P (MAP) 88/55 (66) Pulse Ox 94 O2 Delivery Nasal Cannula O2 Flow Rate 4.00 FiO2 36 Capillary Refill : Less Than 3 SecondsLess Than 3 Seconds I&O Intake and Output 12/15/17 00:00 Intake Total 2710 ml Output Total 450 ml Balance 2260 ml Intake Oral 660 ml IV Total 2050 ml Output Urine Total 450 ml # Voids 4 General: Alert, Oriented X3, Cooperative HEENT: Atraumatic, PERRLA Neck: Supple, No JVD, No Thyromegaly Lungs: Normal Air Movement, Other (WITH CRACKLES IN LEFT BASE) Heart: Regular Rate, Normal S1, Normal S2, No Murmurs Abdomen: Soft, No Hepatosplenomegaly, No Masses, Other (Tenderness at the surgical site, mild distention) Extremities: No Clubbing, No Cyanosis, No Edema, Normal Pulses, No Tenderness/ Swelling Skin: No Rashes, No Breakdown, No Significant Lesion Neuro: Normal Gait, Normal Speech, Strength at 5/5 X4 Ext, Normal Tone, Sensation Intact Psych/Mental Status: Mental Status NL, Mood NL Results Lab Laboratory Tests 12/15/17 05:25 12/15/17 05:35 A/P-Cardiology Admission Diagnosis Acute cholecystitis Coronary artery disease Hypertension Hyperlipidemia Assessment/Plan Acute cholecystitis, status post cholecystectomy done on December 13, 2017, recovering well, managed by Dr. Marshall Coronary artery disease, history of CABG 4 done in 2000 using MEYER to LAD, vein graft to the right coronary artery, vein graft to the diagonal artery, vein graft to the obtuse marginal branch. Cardiac catheterization was done in April 2012 showing patent bypass graft and the 3 stents to the right coronary artery were patent with excellent flow. In 2010, patient had 3.038 mm Ion stent 3.538 mm Ion stent and 3.528 mm Ion stent to the right coronary artery. History of Veriflex stent to the OM1 and 2010 and intra-aortic balloon pump due to slow flow. Admitted on March 09, 2016 with non-ST elevation myocardial infarction, had cardiac catheterization showed total occlusion of the diagonal artery was successful angioplasty to the vein graft to the diagonal artery then deployment of a focal stent in the [place] diagonal artery through the vein graft using 2.5 x 8 mm Promus Premier expanded to 2.75 with excellent results. Most recent cardiac catheterization done June 25, 2017 revealed severe small vessel disease at the distal diagonal artery and right coronary artery and LAD, Patent MEYER to LAD, patent vein graft to diagonal artery, the diagonal artery is known to have 2 stents, beyond the stent it is a hairline artery with small vessel disease. Patent vein graft to obtuse marginal branch with good flow distally. Known occluded vein graft to the right coronary artery, the [place] right coronary artery has multiple stents from the proximal to distal portion that are patent, beyond the bifurcation there is small vessel disease in the PDA. No active chest pain. Continue to monitor History of Congestive heart failure, resolved, last echocardiogram was done in June 2017 showing ejection fraction 60-65 percent, mild aortic valve stenosis, PA pressure 25-30 mmHg. Continue to monitor Hypertension, continue to monitor blood pressure. Hyperlipidemia, has been on Lipitor 20 mg daily, continue to hold for now Carotid stenosis, history of right CEA, carotid ultrasound was done in May 2017 showing mild bilateral disease nonobstructive disease Hypothyroidism, followed and managed by primary care physician. History of pulmonary hypertension, last echocardiogram showed normal PA pressure. Continue to monitor. Okay for discharge from cardiology standpoint Clinical Quality Measures AMI/AHF: ASA po Prior to arrival: Yes (baby aspirin daily) DVT/VTE Risk/Contraindication: Risk Factor Score Per Nursin RFS Level Per Nursing on Admit: 4+=Very High NICOLASA SANDHU MD Dec 15, 2017 09:57
[2017-12-15 12:00] VITALS: BP 103/62
--- NOTE | 2017-12-16 01:00 | OPERATIVE REPORT ---
DATE OF SERVICE: 12/13/2017 PREOPERATIVE DIAGNOSIS: Cholelithiasis, cholecystitis. POSTOPERATIVE DIAGNOSIS: Cholelithiasis, cholecystitis. PROCEDURE: Laparoscopic cholecystectomy with intraoperative cholangiogram. SURGEON: Zach Marshall DO. ANESTHESIA: General. ESTIMATED BLOOD LOSS: Minimal. COMPLICATIONS: None. INDICATIONS: The patient is an 82-year-old male who presented with abdominal pain workup with CT scan ultrasound demonstrating stones and likely early cholecystitis. The patient was discussed risks and benefits of procedure and wished to proceed with procedure. Consent was signed on the chart. DESCRIPTION OF PROCEDURE: The patient was taken to the operating suite, was prepped and draped in sterile fashion. Surgical pause was performed. Deena technique was used to enter the abdomen just above the umbilicus. Once in, a 0 Vicryl was placed in a [id number]-ff-wvydu fashion for a fascial closure at the end of the procedure. The balloon trocar was inserted in the abdomen. The wound was filled with air and pneumoperitoneum was achieved. Under direct visualization of the laparoscope, a 5 mm trocar was placed in the subxiphoid region and two 5 mm trocars were placed in the right upper quadrant. The omentum was caked onto the gallbladder with multiple adhesions also formed to the liver as well. Hook cautery was used to take the adhesions off of the liver and also a [place] with cautery dissection was then used to free up the gallbladder. The gallbladder was able to be grasped and elevated and had significant amount of edema with thickening appearance. Once this was able to be mobilized and be able to be lifted up over the liver. The fundus of the gallbladder was elevated above the liver edge and dissection was continued to be performed. The cystic duct and cystic artery were then dissected out. Clips were placed on the proximal and distal portion of the cystic artery and a clip was placed on the distal portion of the cystic duct. The cystic duct was then partially transected. Arrow catheter inserted and cholangiogram was performed. There were no filling defects. Contrast made its way into the duodenum without difficulty. The Arrow catheter was then removed. Clips were placed on the proximal portion of the cystic duct and the duct and artery were then completely transected. Hook cautery was used to dissect the gallbladder from the gallbladder fossa achieving hemostasis. Once it was removed, it was placed in an Endobag and removed through the 12 mm trocar site. The patient is on Plavix and aspirin. He did receive some platelets prior, but he does still have a little bit of slight ooze to the liver bed and cautery was used to achieve hemostasis and Surgicel was then placed in the gallbladder fossa after it was irrigated and suctioned multiple times. Abdomen inspected, hemostasis had been achieved. The abdomen was then desufflated. The trocars were removed. The fascial defect with 0 Vicryl was then closed that was previously placed. The skin was then closed using 4-0 Monocryl in subcuticular fashion. The area was then washed and dried and SwiftSet was placed over the incisions. The patient tolerated procedure well without any complications. He was taken to recovery room in stable condition. Job ID: [id number] DocumentID: [id number] Dictated Date: 12/15/2017 16:24:23 Glass Cutter Hand Date: 12/16/2017 00:59:19 Dictated By: DO SAMSON CAMPA
--- NOTE | 2017-12-16 12:18 | Anesthesia-General Post-Op ---
General Patient Condition Mental Status/LOC: Same as Preop Cardiovascular: Satisfactory Nausea/Vomiting: Absent Respiratory: Satisfactory Pain: Controlled Complications: Absent Post Op Complications Complications None Follow Up Care/Instructions Patient Instructions None needed. Anesthesia/Patient Condition Patient Condition Patient is doing well, no complaints, stable vital signs, no apparent adverse anesthesia problems. No complications reported per nursing. [place] [facility] [place]: No NORRIS PEREA CRNA Dec 16, 2017 12:18
== END 2017-12-15 13:30 | disposition home or self-care (01) ==
LOC: EDUNIT# 01:02 → ER 01:05 → 4TH 04:10 → UNDOADMIN 04:10 → SDC 04:10 → 4TH 12-15 09:47 → EDPENDDISTM 12-15 10:00 → SDC 12-15 13:30 → UNDODISIN 12-15 13:30
PROVIDERS: ATTEND Surgery
DX: K80.12 Calculus of gallbladder with acute and chronic cholecystitis without obstruction (principal); J18.9 Pneumonia, unspecified organism; I25.10 Atherosclerotic heart disease of native coronary artery without angina pectoris; I10 Essential (primary) hypertension; R09.02 Hypoxemia; I27.20 Pulmonary hypertension, unspecified; I35.0 Nonrheumatic aortic (valve) stenosis; I95.9 Hypotension, unspecified; R73.03 Prediabetes; E78.00 Pure hypercholesterolemia, unspecified; K21.9 Gastro-esophageal reflux disease without esophagitis; K59.00 Constipation, unspecified; E03.9 Hypothyroidism, unspecified; I65.23 Occlusion and stenosis of bilateral carotid arteries; E80.6 Other disorders of bilirubin metabolism; R74.8 Abnormal levels of other serum enzymes; I25.2 Old myocardial infarction; Z95.1 Presence of aortocoronary bypass graft; Z95.5 Presence of coronary angioplasty implant and graft; Z86.010 Personal history of colon polyps; Z87.891 Personal history of nicotine dependence; Z79.02 Long term (current) use of antithrombotics/antiplatelets; Z79.82 Long term (current) use of aspirin; Z86.79 Personal history of other diseases of the circulatory system
CPT/HCPCS: 36415; 71045; 71046; 71275; 74174; 76705; 80053; 80061; 82248; 82962; 83690; 83735; 83874; 84484; 85025; 85379; 85610; 85730; 87070; 87081; 87205; 88304; 93005; 93041; 94640; 94664; 94760; 96361; 96365; 96375; 96376

== ENCOUNTER 2017-12-18 16:40 | Outpatient (CLI) | payer MEDICARE ==
[~2017-12-18] VITALS: Ht 175.3 cm; Wt 84.7 kg
[2017-12-18 16:30] VITALS: BP 142/87
[~2017-12-18 16:40] MED LIST changes: +CEFD300C3 PO; +LACT1CAP87 PO; +ROSU5TAB11 PO
[2017-12-18 16:57] LABS: BILIRUBIN,URINE NEGATIVE (NEGATIVE); CLARITY,URINE CLEAR; COLOR,URINE YELLOW; GLUCOSE, URINE (UA) NEGATIVE (NEGATIVE); KETONES,URINE NEGATIVE (NEGATIVE); LEUKOCYTE ESTERASE ,URINE NEGATIVE (NEGATIVE); NITRITE,URINE NEGATIVE (NEGATIVE); PH,URINE 8 (5-9); PROTEIN,URINE NEGATIVE (NEGATIVE); UROBILINOGEN,URINE NORMAL (NORMAL)
[2017-12-18 17:04] LABS: RBC,URINE RARE /HPF
[2017-12-18 17:05] LABS: BACTERIA,URINE NEGATIVE /HPF
== END 2017-12-18 16:54 | disposition home or self-care (01) ==
LOC: SDC 16:40
PROVIDERS: ATTEND Nurse Practitioner Family
DX: R33.9 Retention of urine, unspecified (principal)
CPT/HCPCS: 81000

== ENCOUNTER → 2018-03-26 | Outpatient (CLI) | payer MEDICARE ==
[~2018-03-26] MED LIST changes: +CATHETER FLUSH 10 ML SYR IV PRN; +DIATRIZOATE MEGLUM/SODIUM 37% 120 ML (GASTROGRAFIN) PO ONE; +IOHEXOL 350 MG/ML 100 ML (OMNIPAQUE 350) VIAL IV ONE; +NS 250 ML (IVPB) BAG IV ONE; +RECEIVED CONTRAST (Hold Metformin) IV SCH; -ROSU5TAB11 PO; +ROSU5TAB12 PO
[2018-03-26 15:08] LABS: BASOPHILS % (AUTO) 0 % (0-10); EOSINOPHILS # (AUTO) 0.3 10^3/uL (0.0-0.3); EOSINOPHILS % (AUTO) 4 % (0-10); HEMATOCRIT 45 % (40-54); HEMOGLOBIN 14.8 G/DL (13.3-17.7); LYMPHOCYTES # (AUTO) 1.6 X 10^3 (1.0-4.0); LYMPHOCYTES % (AUTO) 19 % (12-44); MEAN CORPUSCULAR HEMOGLOBIN 28 PG (25-34); MEAN CORPUSCULAR HGB CONC 33 G/DL (32-36); MEAN CORPUSCULAR VOLUME 85 FL (80-99); MEAN PLATELET VOLUME 10.7 FL (7.4-10.4); MONOCYTES # (AUTO) 1.2 X 10^3 (0.0-1.0); MONOCYTES % (AUTO) 14 % (0-12); NEUTROPHILS # (AUTO) 5.2 X 10^3 (1.8-7.8); NEUTROPHILS % (AUTO) 63 % (42-75); PLATELET COUNT 256 10^3/uL (130-400); RED BLOOD COUNT 5.26 10^6/uL (4.35-5.85); RED CELL DISTRIBUTION WIDTH 14.5 % (10.0-14.5); WHITE BLOOD COUNT 8.4 10^3/uL (4.3-11.0)
[2018-03-26 15:26] LABS: ALANINE AMINOTRANSFERASE 14 U/L (0-55); ALBUMIN 3.7 GM/DL (3.2-4.5); ALKALINE PHOSPHATASE 96 U/L (40-136); BILIRUBIN,TOTAL 0.8 MG/DL (0.1-1.0); BUN/CREATININE RATIO 12; CALCIUM 9.5 MG/DL (8.5-10.1); CARBON DIOXIDE 25 MMOL/L (21-32); CHLORIDE 101 MMOL/L (98-107); CREATININE SERUM 0.98 MG/DL (0.60-1.30); GFR ESTIMATED > 60; GLUCOSE 122 MG/DL (70-105); POTASSIUM 3.8 MMOL/L (3.6-5.0); SODIUM 136 MMOL/L (135-145); TOTAL PROTEIN 7.3 GM/DL (6.4-8.2)
--- NOTE | 2018-03-26 16:48 | Diagnostic Imaging Report ---
PROCEDURE: CT abdomen and pelvis with and without contrast. TECHNIQUE: Precontrast acquisitions were acquired through the abdomen and pelvis. Multiple contiguous axial images were obtained through the abdomen and pelvis after the administration of intravenous contrast. INDICATION: Right lower quadrant and periumbilical pain. COMPARISON: 12/13/2017 FINDINGS: Included portions of the lung bases are clear. Punctate juxtapleural 4 mm micronodule is noted within the posterior right lower lobe (image 8, series 2). This is stable compared to 12/13/2017. Mild hiatal hernia is noted. Ingested contrast is noted within the distal esophagus, which may be related to residual contrast versus reflux. CT abdomen: There is colonic diverticulosis, but no CT evidence of acute diverticulitis. Moderate air and stool is noted scattered throughout the colon. Normal appendix is identified. FINDINGS: Patient is now status post interval cholecystectomy. There has been interval development of 2.9 x 2.5 x 4 cm peripherally hyperdense and hyperenhancing lesion adjacent to the posterior margins of segment 6 of the liver (images 61, series 6, 48, series 5, and 27, series 3). The lesion is centrally hypodense as well. The lesion blurs fat planes surrounding the liver, as well as extends tubular fat planes anterior to the intercostal muscles. This area is new when compared to 12/13/2017. A similar-appearing smaller area is also identified superior to the dome of segment 7 and measures 2.6 x 2.3 x 1.3 cm (image 13, series 2 and image 58, series 6). Remainder of the liver is unremarkable. The kidneys, adrenal glands, spleen, and pancreas have a normal CT appearance. No other loculated air-fluid collections are seen within the abdomen. There is no free fluid nor free air. No abnormal lymph nodes are identified. There is advanced diffuse calcified and noncalcified aortic and arterial atherosclerosis. There is focal aneurysmal dilatation of the infrarenal abdominal aorta where it measures 3 x 3 cm. There is moderate mural thrombus at this level. Bony structures show no acute abnormalities. CT pelvis: Since the previous exam, there has been interval development of prominent nodular soft tissue density along the anterior margins of the upper rectum near its junction with the sigmoid colon. Area in question measures approximately 2.1 x 1.9 cm. This is new compared to 12/13/2017 as well. Urinary bladder is grossly unremarkable. There is no loculated fluid collection, free fluid, nor free air within the pelvis. No abnormal lymph nodes are seen. Bony structures show no acute abnormalities. Fat-containing right inguinal hernia is noted. Bony structures show no acute abnormalities. IMPRESSION: 1. New soft tissue appearing densities adjacent to the hepatic surfaces at segments 6 and 7 as well as within the lower pelvis anterior to the upper rectum. These are new since 12/13/2017. Note is made of interval cholecystectomy. Infectious processes are considered given the clinical history of recent surgery, but lesions appear aggressive and infiltrative and are concerning for peritoneal malignancy. The largest lesion adjacent to segment 6 of the liver does appear to be in a position amenable to CT-guided biopsy. A sample could also be sent for Gram stain and culture at the time of biopsy for possible infectious etiology. 2. No convincing evidence of abscess status post cholecystectomy. 3. Diffuse aortic, arterial, and coronary atherosclerotic disease with focal aneurysmal dilatation of the infrarenal abdominal aorta. 4. Small hiatal hernia with probable reflux of contrast. 5. Colonic diverticulosis, but no CT evidence of acute diverticulitis. 6. Fat-containing right inguinal hernia. Dictated by: Dictated on workstation # [id number]
== END ==
LOC: RAD 14:22
PROVIDERS: ATTEND Family Medicine
DX: K76.9 Liver disease, unspecified (principal); I25.10 Atherosclerotic heart disease of native coronary artery without angina pectoris; I70.0 Atherosclerosis of aorta; I77.819 Aortic ectasia, unspecified site; K44.9 Diaphragmatic hernia without obstruction or gangrene; K40.90 Unilateral inguinal hernia, without obstruction or gangrene, not specified as recurrent; K57.30 Diverticulosis of large intestine without perforation or abscess without bleeding; Z90.49 Acquired absence of other specified parts of digestive tract
CPT/HCPCS: 36415; 74178; 80053; 85025

== ENCOUNTER 2018-03-31 09:08 | Outpatient (CLI) | payer MEDICARE ==
[~2018-03-31] VITALS: Ht 175.3 cm; Wt 81.2 kg
[~2018-03-31 09:08] MED LIST changes: -CATHETER FLUSH 10 ML SYR IV PRN; -DIATRIZOATE MEGLUM/SODIUM 37% 120 ML (GASTROGRAFIN) PO ONE; -IOHEXOL 350 MG/ML 100 ML (OMNIPAQUE 350) VIAL IV ONE; -NS 250 ML (IVPB) BAG IV ONE; -RECEIVED CONTRAST (Hold Metformin) IV SCH
[2018-03-31] MEDS ORDERED: CARV3.122 PO (13:41)
== END 2018-03-31 13:42 | disposition home or self-care (01) ==
LOC: PREOP 09:08
PROVIDERS: ATTEND Surgery
DX: Z01.818 Encounter for other preprocedural examination (principal)

== ENCOUNTER 2018-04-01 11:51 | Day surgery (SDC) | payer MEDICARE ==
[~2018-04-01] VITALS: Ht 175.3 cm; Wt 81.2 kg
[~2018-04-01 11:51] MED LIST changes: +LACTATED RINGERS 1,000 ML IV ONE
[2018-04-01] MEDS ORDERED: LIDOCAINE 1% INJ 20 ML 20 ML VIAL INJ ONE (12:00)
[2018-04-01] MEDS ORDERED: LACTATED RINGERS 1,000 ML IV STA (12:14)
[2018-04-01 12:23] LABS: HEMOGLOBIN 15.6 G/DL (13.3-17.7); RED BLOOD COUNT 5.58 10^6/uL (4.35-5.85); RED CELL DISTRIBUTION WIDTH 14.7 % (10.0-14.5); WHITE BLOOD COUNT 10.5 10^3/uL (4.3-11.0)
[2018-04-01 12:33] LABS: INR 1.1 (0.8-1.4); PROTHROMBIN TIME PATIENT 14.1 SEC (12.2-14.7)
[2018-04-01 12:42] VITALS: BP 128/85
[2018-04-01] MEDS ORDERED: PROPOFOL INJECTION 50 ML IV ONE (13:55)
[2018-04-01] MEDS ORDERED: MIDAZOLAM 2 MG/2 ML (VERSED) VIAL ONE (13:59)
--- NOTE | 2018-04-01 14:09 | Progress Note-Pre Operative ---
Pre-Operative Progress Note H&P Reviewed The H&P was reviewed, patient examined and no changes noted. Date Seen by Provider: Apr 01, 2018 Time Seen by Provider: 14:09 Date H&P Reviewed: Apr 01, 2018 Time H&P Reviewed: 14:09 Pre-Operative Diagnosis: abnormal ct scan MARIBELL DACOSTA DO Apr 01, 2018 14:09
[2018-04-01] MEDS ORDERED: ESMOLOL 100 MG/10 ML (BREVIBLOC) VIAL ONE (14:27)
--- NOTE | 2018-04-01 16:14 | Discharge Inst-Simple/Standard ---
Discharge Inst-Standard Patient Instructions/Follow Up Plan of Care/Instructions/FU: 2 weeks Rolando Start back on Plavix and Aspirin in 3 days. Activity as Tolerated: Yes Discharge Diet: Regular Diet MARIBELL DACOSTA DO Apr 01, 2018 16:14
--- NOTE | 2018-04-01 16:15 | Progress Note-Post Operative ---
Post-Operative Progess Note Surgeon (s)/Collection Systems Technician (s) Surgeon MARIBELL DACOSTA DO Collection Systems Technician: na Pre-Operative Diagnosis abnormal ct scan Post-Operative Diagnosis diverticulosis, colon polyps x 4 Procedure & Operative Findings Date of Procedure 04/01/18 Procedure Performed/Findings colonoscopy with hot bx polypectomy x 3 and snare polypectomy x 1 Anesthesia Type per ice rink attendant Estimated Blood Loss Estimated blood loss (mL): none Specimens/Packing Specimens Removed colon polyps MARIBELL DACOSTA DO Apr 01, 2018 16:15
--- NOTE | 2018-04-02 22:21 | OPERATIVE REPORT ---
DATE OF SERVICE: 04/01/2018 PREOPERATIVE DIAGNOSIS: Abnormal CT scan finding. POSTOPERATIVE DIAGNOSIS: Colon polyps x4. PROCEDURE: Colonoscopy with hot biopsy polypectomy x3 and snare polypectomy x1. SURGEON: Maribell Marshall DO ANESTHESIA: Per MDA. ESTIMATED BLOOD LOSS: None. COMPLICATIONS: None. INDICATIONS: The patient is an 82-year-old male with CT scan findings demonstrate a questionable area in the rectosigmoid area of the colon. The patient was explained risks and benefits of the procedure and wished to proceed with procedure. Consent was signed in the chart. PROCEDURE: The patient was taken to the endoscopy suite, placed in left lateral recumbent position. Timeout was performed. Digital rectal exam was performed. There were no palpable polyps, mass or ulcerations. The scope was inserted in the rectum and advanced all the way to the cecum without difficulty. No polyps, mass or ulcerations in the cecum. The prep was adequate. Scope was then slowly retracted back. There were no polyps, mass or ulcerations in the ascending colon. Once hitting the hepatic flexure, there were two small polyps, which hot biopsy polypectomies performed. There was another polyp present here and snare polypectomy was performed. Scope was continuously retracted back to the transverse colon, which another small polyp was present, which hot biopsy polypectomy was performed. Scope was continuously slowly retracted back through the descending colon and sigmoid colon. There were no polyps, mass or ulcerations present. There was some diverticulosis through this area as well. Scope was continuously retracted back to the rectum, where it was also retroflexed noting no other pathology. Scope was returned to its normal position, slowly withdrawn until completely removed. The patient tolerated the procedure well without complications. He was taken to the recovery room in stable condition. RECOMMENDATIONS: The patient will follow up in the office in 2 weeks to discuss pathology results and discuss whether he would like to proceed with repeating colonoscopy in 3 to 5 years. Job ID: [id number] DocumentID: [id number] Dictated Date: 04/02/2018 18:38:18 Finishing Tunnel Operator Date: 04/02/2018 22:20:39 Dictated By: MARIBELL MARSHALL DO
== END 2018-04-01 17:00 | disposition home or self-care (01) ==
LOC: ENDO 11:51
PROVIDERS: ATTEND Surgery
DX: D12.3 Benign neoplasm of transverse colon (principal); K57.30 Diverticulosis of large intestine without perforation or abscess without bleeding; E78.5 Hyperlipidemia, unspecified; E03.9 Hypothyroidism, unspecified; I11.0 Hypertensive heart disease with heart failure; E11.9 Type 2 diabetes mellitus without complications; I50.9 Heart failure, unspecified; I25.10 Atherosclerotic heart disease of native coronary artery without angina pectoris; Z95.5 Presence of coronary angioplasty implant and graft; K21.9 Gastro-esophageal reflux disease without esophagitis; Z79.82 Long term (current) use of aspirin; Z87.891 Personal history of nicotine dependence; Z95.1 Presence of aortocoronary bypass graft; Z79.899 Other long term (current) drug therapy
CPT/HCPCS: 36415; 85027; 85610; 85730

== ENCOUNTER 2018-04-01 11:58 | Outpatient (CLI) | payer MEDICARE ==
[~2018-04-01] VITALS: Ht 175.3 cm; Wt 81.2 kg
[~2018-04-01 11:58] MED LIST changes: -LACTATED RINGERS 1,000 ML IV ONE
[2018-04-01] MEDS ORDERED: LIDOCAINE 1% INJ 20 ML 20 ML VIAL ONE (13:52)
[2018-04-01 15:00] VITALS: BP 143/82
[2018-04-01 15:15] VITALS: BP 129/72
[2018-04-01] MEDS ORDERED: LIDOCAINE 1% INJ 20 ML 20 ML VIAL INJ ONE (15:15)
[2018-04-01] MEDS ORDERED: HYDROcodone/APAP 5 MG/325 MG (LORTAB) TAB PO PRN (15:15)
[2018-04-01 15:30] VITALS: BP 113/64
[2018-04-01 15:40] VITALS: BP 162/86
--- NOTE | 2018-04-01 15:48 | Pre-Procedure Progress Note ---
Pre-Procedure Progress Note H&P Reviewed The H&P was reviewed, patient examined and no changes noted. Date H&P Reviewed: Apr 01, 2018 Time H&P Reviewed: 13:00 Pre-Procedure Diagnosis: Abdominal mass SUNNY CHAMPAGEN MD Apr 01, 2018 15:47
--- NOTE | 2018-04-01 16:04 | Diagnostic Imaging Report ---
INDICATION: Abdominal mass. Patient presents for CT-guided biopsy. PROCEDURE: After informed written consent was obtained, patient was brought to the CT suite and placed on the table on the left side down decubitus position. Axial imaging through the abdomen was performed to evaluate appropriate entry site. The right flank was prepped and draped in usual sterile fashion. Small amount of 1% lidocaine was utilized for local anesthesia. 18-gauge coaxial needle was advanced and placed with its tip in the mass noted along the inferior edge of the liver. Four core biopsies were obtained. The needle was withdrawn and hemostasis was obtained. Patient tolerated the procedure well and left the department in stable condition. IMPRESSION: Successful CT-guided biopsy of the mass located in the right abdominal wall near the right lobe of the liver. Pathology results are currently pending. Dictated by: Dictated on workstation # [id number]
== END 2018-04-01 17:00 | disposition home or self-care (01) ==
LOC: SDC 11:58
PROVIDERS: ATTEND Family Medicine
DX: R19.01 Right upper quadrant abdominal swelling, mass and lump (principal); E11.9 Type 2 diabetes mellitus without complications; I10 Essential (primary) hypertension; E03.9 Hypothyroidism, unspecified; Z79.02 Long term (current) use of antithrombotics/antiplatelets; Z79.82 Long term (current) use of aspirin; Z79.899 Other long term (current) drug therapy; Z79.4 Long term (current) use of insulin; Z87.891 Personal history of nicotine dependence
CPT/HCPCS: 77012